=== PATIENT | female | born 1985 | race Caucasian/White ===

== ENCOUNTER 2017-03-04 18:23 | Inpatient (IN) | payer MEDICAID, OTHER ==
--- NOTE | 2017-03-04 18:57 | ED ---
General Adult HPI - General Chief complaint: Psychiatric Symptoms Stated complaint: SUICIDAL Time Seen by Provider: 03/04/17 18:36 Source: patient, RN notes reviewed Mode of arrival: ambulatory Limitations: no limitations - History of Present Illness Initial comments: Chief complaint history of present illness; is a 32-year-old female reports that she is depressed and suicidal. States she does denies drugs including heroin which she lasted this morning, cocaine and methamphetamine. Patient reports she's been through rehab programs over 30 times. She is afraid that she is going to kill herself because she is depressed. - Related Data Home Medications Medication Instructions Recorded Confirmed No Known Home Medications [No 03/04/17 03/04/17 Known Home Medications] Allergies Allergy/AdvReac Type Severity Reaction Status Date / Time vancomycin Allergy Rash/Hives/ Verified 03/04/17 19:30 Dyspnea Review of Systems ROS Statement: Those systems with pertinent positive or pertinent negative responses have been documented in the HPI. Review of systems patient reports she's here because she is depressed and suicidal. There is a past history of bipolar disorder and chronic depression. She also has substance abuse problems last used heroin this morning. She is denying any headache chest pain shortness breath GI/ complaints this time. Denies having any active abscesses. Systems reviewed problems significant for IV drug abuse, bipolar disorder, family history no cancers or addictions. Patient's surgeries include 4 C-sections all he shoulder living with the father. She has ALLERGIES to vancomycin causes her to be itchy and hives. She does smoke she denies alcohol use. ROS Other: All systems not noted in ROS Statement are negative. Past Medical History Past Medical History: No Reported History Additional Past Medical History / Comment(s): adjustment disorder History of Any Multi-Drug Resistant Organisms: MRSA Date of last positivie culture/infection: 02/02/16 MDRO Source:: face Past Surgical History: Section Past Anesthesia/Blood Transfusion Reactions: No Reported Reaction Past Psychological History: Anxiety, Bipolar, Depression Smoking Status: Current every day smoker Past Alcohol Use History: None Reported Past Drug Use History: Heroin, Methamphetamine General Exam - General Exam Comments Initial Comments: General: The patient is awake and alert, appears had, depressed, states she is suicidal because of being depressed over chronic drug abuse. sHe started using drugs and she was 26. Vital signs show temperature 98.4 pulse 108 respiratory 18 pulse ox 98% room air blood pressure 159/ 100 Eye: Pupils are equal, round and reactive to light, extra-ocular movements are intact ; there is normal conjunctiva bilaterally. No signs of icterus. Ears, nose, mouth and throat: There are moist mucous membranes and no oral lesions. Neck: The neck is supple, there is no tenderness or JVD. Cardiovascular: There is a regular rate and rhythm. No murmur, rub or gallop is appreciated. Respiratory: Lungs are clear to auscultation, respirations are non-labored, breath sounds are equal. No wheezes, stridor, rales, or rhonchi. Gastrointestinal: Soft, non-distended, non-tender abdomen without masses or organomegaly noted. There is no rebound or guarding present. No CVA tenderness. Bowel sounds are unremarkable. Back: There is no tenderness to palpation in the midline. There is no obvious deformity. No rashes noted. Musculoskeletal: Normal ROM, no tenderness, There is no pedal edema. There is no calf tenderness or swelling. Sensation intact. Pulses equal bilaterally 2+. Neurological: CN II-XII intact, There are no obvious motor or sensory deficits. Coordination appears grossly intact. Speech is normal. Skin: Multiple tattoos on her face arms legs Psychiatric: Flat affect, depressed, suicidal. Addicted to multiple drugs including heroin which she last used this morning. Limitations: no limitations Course Vital Signs 03/04/17 18:30 Temperature 98.4 F Pulse Rate 108 H Respiratory 18 Rate Blood Pressure 159/100 O2 Sat by Pulse 98 Oximetry Medical Decision Making - Medical Decision Making Medical decision making; the patient's breath alcohol test was 0. A urine triage was negative for evidence of aspirin or Tylenol. It was positive for opiates, benzodiazepines and cocaine. At this time the patient is clear for psychiatric evaluation. - Lab Data Lab Results 03/04/17 03/04/17 Range/Units 18:58 18:58 Salicylates <1.0 mg/dL Urine Opiates Screen Detected H (NotDetected) Ur Oxycodone Screen Not Detected (NotDetected) Urine Methadone Screen Not Detected (NotDetected) Ur Propoxyphene Screen Not Detected (NotDetected) Acetaminophen <10.0 ug/mL Ur Barbiturates Screen Not Detected (NotDetected) U Tricyclic Antidepress Not Detected (NotDetected) Ur Phencyclidine Scrn Not Detected (NotDetected) Ur Amphetamines Screen Not Detected (NotDetected) U Methamphetamines Scrn Not Detected (NotDetected) U Benzodiazepines Scrn Detected H (NotDetected) Urine Cocaine Screen Detected H (NotDetected) U Marijuana (THC) Screen Not Detected (NotDetected) Disposition Clinical Impression: Major depression, Polysubstance abuse Disposition: TRANSFER TO PSYCH HOSP/UNIT Condition: Serious Referrals: None,Stated [Primary Care Provider] - 1-2 days
[2017-03-04 19:12] LABS: Acetaminophen <10.0 ug/mL; Salicylate <1.0 mg/dL
[2017-03-04] MEDS ORDERED: LORazepam 1 MG TAB PO STA ×2 (21:00→22:56)
[2017-03-05] MEDS ORDERED: MAGNESIUM HYDROXIDE 2,400 MG/10 ML CUP PO PRN (00:09)
[2017-03-05] MEDS ORDERED: MAG HYDROX/AL HYDROX/SIMETH 30 ML CUP PO PRN (00:09)
[2017-03-05 02:03] VITALS: BMI 22.6
[2017-03-05] MEDS: NICOTINE 14MG/24HR PATCH TRANSDERM SCH (08:31)
[2017-03-05] MEDS: LORazepam 1 MG TAB PO PRN ×3 (08:32→21:23)
[2017-03-05] MEDS ORDERED: LOPERAMIDE 2 MG CAP PO PRN (09:03)
[2017-03-05] MEDS ORDERED: ONDANSETRON 4 MG TAB PO PRN (09:03)
--- NOTE | 2017-03-05 09:03 | P.HPMEDMHU ---
History of Present Illness H&P Date: 03/05/17 Chief Complaint: Detoxing This is a 32 year old female with past medical history significant for IV drug abuse and MRSA. The patient states that she last used IV heroin yesterday morning and is now having significant withdrawal symptoms. She presented to [facility] emergency room with suicidal thoughts which worsened after she was attempting to get herself cleaned from all of her drug addiction. She uses crack cocaine and heroin. She has been increasingly more anxious. She states that she is at a point in her life where she wishes to quit. She would like assistance with her drug addiction. She is currently experiencing some abdominal cramping otherwise she feels jittery, she denies any nausea or vomiting, she has not had any palpitations chest pain, no fevers no rigors. She has not noticed any new rashes. She denies any headaches changes in vision or acute visual loss. She feels like she is crawling out of her skin. She states she is unemployed. She lives at home with her boyfriend. Review of Systems Constitutional: Patient reports chills, low-grade temps, she feels anxious, tremulous Eyes: Patient reports no double vision, no visual changes ENT: Patient reports no rhinorrhea, no post nasal drip, no sore throat Cardiovascular: Patient reports no chest, no edema, no palpitations, no syncope , no orthopnea, no paroxysmal nocturnal dyspnea. Respiratory: Patient reports no dyspnea, no cough, no wheeze Gastrointestinal: Patient reports no nausea, no vomiting, no constipation, no diarrhea. Mild abdominal cramping Genitourinary: Patient reports no dysuria, no urinary frequency, no hematuria. Musculoskeletal: Patient reports no unusual joint pain, no joint swelling or weakness. Patient reports no muscular pain. Psychiatric: Patient reports severe anxiety, depression "can't take this anymore". Endocrine: Patient reports no thirst, no polyuria, no cold intolerance, no heat intolerance. Neurological: Patient reports no unusual paresthesias, no seizures, no paresis , no paralysis, no facila droop, no headache. Heme/Lymphatic: Patient reports no easy bruising, no bleeding tendency, no lymphadenopathy. Allergic/ Immunologic: Patient reports no recent allergic reactions or immunologic history. Skin: Patient reports no rashes or unusual lesions. Past Medical History Past Medical History: No Reported History Additional Past Medical History / Comment(s): adjustment disorder. Major Depression. Polysubstance abuse History of Any Multi-Drug Resistant Organisms: MRSA Date of last positivie culture/infection: 02/02/16 MDRO Source:: face Past Surgical History: Section Past Anesthesia/Blood Transfusion Reactions: No Reported Reaction Past Psychological History: Depression Smoking Status: Current every day smoker Past Drug Use History: Cocaine, Heroin, IV Drug Use Medications and Allergies Home Medications Medication Instructions Recorded Confirmed Type No Known Home Medications [No 03/04/17 03/05/17 History Known Home Medications] Allergies Allergy/AdvReac Type Severity Reaction Status Date / Time vancomycin Allergy Rash/Hives/ Verified 03/05/17 01:40 Dyspnea Physical Exam Vitals: Vital Signs Temp Pulse Pulse Resp BP BP Pulse Ox 03/05/17 07:04 97.7 F 76 12 122/79 03/05/17 01:50 98.7 F 76 16 112/75 03/04/17 21:16 83 18 128/76 100 03/04/17 18:30 98.4 F 108 H 18 159/100 98 Intake and Output 03/04/17 03/05/17 03/05/17 22:59 06:59 14:59 Other: Weight 61.235 kg 65.7 kg Constitutional: Anxious, but in no acute respiratory distress, does not appear ill, appears to be withdrawing Eyes: Anicteric sclerae, moist conjunctiva, no lid-lag PERR ENMT: NC/AT Oropharynx clear, no erythema, exudates Neck: Supple, FROM, no masses, or JVD No carotid bruits No thyromegaly Lungs: Clear to auscultation Normal respiratory effort, no accessory muscle use Cardiovascular: Heart regular in rate and rhythm, No murmurs, gallops, or rubs No peripheral edema Abdominal: Soft Nontender, no guarding, rebound or rigidity Abdomen moving with respiration Normoactive bowel sounds No hepatomegaly, No splenomegaly No palpable mass No abdominal wall hernia noted Skin: Normal temperature, tone, texture, turgor No induration. Multiple tattoos No rash, lesions Extremities: No digital cyanosis No clubbing Radial pulses intact and symmetrical Normal gait and station Psychiatric: Alert and oriented to person, place and time Appropriate affect Intact judgement Neuro: Muscles Strength 5/5 in all 4 extremities Sensation to light touch grossly present throughout Cranial nerves II-XII grossly intact No focal sensory deficits Cranial Nerve Examination - Cranial Nerves Cranial Nerve I- Olfactory: Intact Cranial Nerve II- Optic: Intact Cranial Nerve III- Oculomotor: Intact Cranial Nerve IV- Trochlear: Intact Cranial Nerve V- Trigeminal: Intact Cranial Nerve - Abducens: Intact Cranial Nerve VII- Facial: Intact Cranial Nerve VIII- Auditory: Intact Cranial Nerve IX- Glossopharyngeal: Intact Cranial Nerve X- Vagus: Intact Cranial Nerve XI- Accessory: Intact Cranial Nerve XII- Hypoglossal: Intact Results Labs: Abnormal Lab Results - Last 24 Hours (Table) 03/04/17 Range/Units 18:58 Urine Opiates Screen Detected H (NotDetected) U Benzodiazepines Scrn Detected H (NotDetected) Urine Cocaine Screen Detected H (NotDetected) Assessment and Plan (1) Major depression Status: Acute (2) Polysubstance abuse Status: Acute (3) Cocaine abuse Status: Acute (4) IV drug abuse Status: Acute Plan: 1. Psychiatric assistance with her mental health and polysubstance abuse. 2. Medically the patient appears to be stable with no acute medical illnesses 3. Continue with supportive care as per psychiatry 4. Frequent ambulation for DVT prophylaxis 5. Full CODE STATUS We appreciate the opportunity to assist in your patient's admission. If you have any further medical needs please do not hesitate to page [facility]
--- NOTE | 2017-03-05 09:16 | P.HP ---
Psychiatric H&P - . H&P Date: 03/05/17 History & Physical: Allergies Allergy/AdvReac Type Severity Reaction Status Date / Time vancomycin Allergy Rash/Hives/ Verified 03/05/17 01:40 Dyspnea Vital Signs Temp 97.7 F 03/05/17 07:04 Pulse 76 03/05/17 07:04 Resp 12 03/05/17 07:04 BP 122/79 03/05/17 07:04 Pulse Ox 100 03/04/17 21:16 Intake & Output 03/04/17 03/05/17 03/05/17 18:59 06:59 18:59 Weight 61.235 kg 65.7 kg Laboratory Last Values Salicylates <1.0 mg/dL 03/04/17 18:58 Urine Opiates Screen Detected (NotDetected) H 03/04/17 18:58 Ur Oxycodone Screen Not Detected (NotDetected) 03/04/17 18:58 Urine Methadone Screen Not Detected (NotDetected) 03/04/17 18:58 Ur Propoxyphene Screen Not Detected (NotDetected) 03/04/17 18:58 Acetaminophen <10.0 ug/mL 03/04/17 18:58 Ur Barbiturates Screen Not Detected (NotDetected) 03/04/17 18:58 U Tricyclic Antidepress Not Detected (NotDetected) 03/04/17 18:58 Ur Phencyclidine Scrn Not Detected (NotDetected) 03/04/17 18:58 Ur Amphetamines Screen Not Detected (NotDetected) 03/04/17 18:58 U Methamphetamines Scrn Not Detected (NotDetected) 03/04/17 18:58 U Benzodiazepines Scrn Detected (NotDetected) H 03/04/17 18:58 Urine Cocaine Screen Detected (NotDetected) H 03/04/17 18:58 U Marijuana (THC) Screen Not Detected (NotDetected) 03/04/17 18:58 03/05/17 09:06 IDENTIFYING DATA: This patient is a 32-year-old single female who was admitted to the mental health unit through the emergency room for suicidal ideation. HPI: The patient was admitted to the mental health unit through the emergency room as she presented with suicidal ideation. Our session was limited today due to her partial cooperation. She reports that she came to the hospital as she was "dope sick" and wanted to kill herself as she couldn't stand it any longer. She reports feeling depressed she is frequently tearful sleep energy and appetite are impaired. She reports she was previously diagnosed as having bipolar disorder with [facility] but denies ever being on medication. She states that she self medicates her symptoms of mental illness. She reports no homicidal ideation she endorses no auditory or visual hallucinations or specific delusions. She states that she feels anxious all the time she endorses having panic attacks. She does not provide much detail with follow-up questions and she wants to terminate the interview to go lay down. PAST PSYCHIATRIC HISTORY: She reports no prior inpatient psychiatric care she was seen at [facility] at some point. She reports a previous diagnosis of bipolar disorder. I reviewed several psychotropic medications with her including mood stabilizers and she states that she has been on none of those. No history of suicide attempts. PMH: None reported ALLERGIES: Vancomycin MEDICATIONS: None CHEMICAL DEPENDENCY HISTORY: She reports using heroin intravenously 5-6 g per day since May. Prior to May she was clean for 14 months. She reports relapsing because her friend was murdered. She reports using crack cocaine whenever it's available but would not quantify an amount. She reports no use of alcohol or marijuana or prescription opiates. She reports that she has been to inpatient chemical dependency treatment numerous times, greater than 5, the last was at [place] she is not able to recall when she was there last. FAMILY PSYCHIATRIC HISTORY: Unknown FAMILY CHEMICAL DEPENDENCY HISTORY: Unknown SOCIAL HISTORY: The patient is 32 years old she single she reports that she has a boyfriend and they've been together 1 year she characterizes the relationship as being "horrible". She states that she lives with her boyfriend. She is unemployed. she has 2 children a 12-year-old son and 9-year-old daughter however she does not have custody of them and they are with their father. She reports graduating high school and attended 2 years of community college with no degree earned. She has 2 brothers 4 sisters. She is originally from the [facility]. Regarding legal history she states that she has been arrested for possession, abuse history unknown as interview ended prematurely. MENTAL STATUS EXAM: The patient is a thin female appearing her stated age. She has a disheveled appearance hygiene and grooming impaired. She has numerous tattoos including on her face and neck and upper extremities. She reports her mood is "dope sick". She has a dysphoric affect she does not sit still in the chair she frequently moves stretching and laying her head down on the table. Eye contact is intermittent at best. She endorses a depressed mood she presented with suicidal ideation. She reports no homicidal ideation. She endorses no auditory or visual hallucinations she is endorsing no specific delusions. Her speech was not pressured. She does not appear manic at this time. Insight and judgment limited. She is oriented to person place and date. No further cognitive testing could be performed. She demonstrated no verbal or physical aggressiveness but indicated she was leaving the room to go lay down. STRENGTHS/WEAKNESSES: Strengths: Presumed housing, willingness to receive treatment weaknesses: Psychosocial dysfunction due to substance use untreated psychiatric symptoms INTELLECTUAL FUNCTIONING: Presumed to be average IMPRESSIONS: [] 1. Depression unspecified, rule out bipolar depression versus major depressive disorder, opioid use disorder, cocaine use disorder 2. Grief and loss PLAN: The patient has been admitted to the mental health unit voluntarily. Her primary focus at this time is receiving treatment for her opiate withdrawal symptoms. We will have to manage these symptomatically. She has Ativan available as needed for anxiety we will make Zofran available for nausea Imodium for diarrhea. We can prescribe Bentyl if she experiences abdominal cramping. Clonidine has been prescribed 0.1 mg up to 3 times a day as needed we will monitor her blood pressure. She will be seen by the hospitalist for routine history and physical exam. Social work will be with the patient to complete a psychosocial assessment and begin discharge planning. With subsequent days we will discuss her presenting mood symptoms further to clarify her psychiatric diagnosis and make medication recommendations as appropriate. We will monitor her for safety and encourage participation in the milieu.
[2017-03-05] MEDS: cloNIDine HCL 0.1 MG TAB PO PRN (17:22)
[2017-03-06] MEDS: cloNIDine HCL 0.1 MG TAB PO PRN ×3 (01:40→18:07)
[2017-03-06] MEDS: LORazepam 1 MG TAB PO PRN ×4 (05:39→23:59)
[2017-03-06] MEDS: NICOTINE 14MG/24HR PATCH TRANSDERM SCH (08:51)
--- NOTE | 2017-03-06 11:07 | P.PN ---
Progress Note - Text Interval history: The patient is found in the hallway she follows me to an interview room. She reports she is still experiencing symptoms from opiate withdrawal. She has been using medications that are available for symptomatic management. Again we tried to discuss her presenting symptoms. She does describe episodes of major depressive disorder. She indicates that she had been previously diagnosed with bipolar disorder but also states that it was always in the context of using heroin and/or cocaine. She reports feeling safe here in the hospital she does inquire as to when she can leave. She expresses interest in attending inpatient chemical dependency treatment but not in this area. She indicates she will go back to the [place] area. The patient is partially cooperative and terminates the session on her own but does so without agitation. Mental status exam: The patient is alert but appears tired. Hygiene and grooming are impaired. Eye contact is intermittent. She frequently moves while seated in her chair and will lay her head down on the table. She has numerous visible tattoos. She reports feeling safe here in the hospital she endorses no acute suicidal ideation currently no homicidal ideation intent or plan. She is reporting no auditory or visual hallucinations she is endorsing no specific delusions. There is no current evidence of psychosis. She does not appear manic at this time. She is oriented to person place and date. She is demonstrating no verbal or physical aggressiveness. Insight and judgment limited. Today it appears she is minimizing symptoms to facilitate a discharge. Plan: Depression on specified rule out major depressive disorder rule out bipolar depression, opiate use disorder cocaine use disorder, the patient engaged more in the interview today versus yesterday but was still insufficient for us to discuss a diagnosis and clearly come up with a medication recommendation. We will continue to monitor her for safety. Vital signs reviewed. We will continue to assess her progress daily in terms of safety.
[2017-03-06] MEDS: ACETAMINOPHEN TAB 325 MG TAB PO PRN ×3 (12:09→21:59)
[2017-03-06 14:34] LABS: Basophils % (A) 0 %; Eosinophils # (A) 0.2 k/uL (0-0.7); Eosinophils % (A) 2 %; HCT 42.9 % (34.0-46.0); HDW 2.74; HGB 14.5 gm/dL (11.4-16.0); Luc # (Auto) 0.11; Luc % (Auto) 1; Lymphocytes # (A) 1.5 k/uL (1.0-4.8); Lymphocytes % (A) 15 %; MCH 30.1 pg (25.0-35.0); MCHC 33.9 g/dL (31.0-37.0); MCV 88.7 fL (80.0-100.0); Monocytes # (A) 0.2 k/uL (0-1.0); Monocytes % (A) 2 %; Neutrophils # (A) 8.1 k/uL (1.3-7.7); Neutrophils % (A) 80 %; RBC 4.84 m/uL (3.80-5.40); WBC 10.1 k/uL (3.8-10.6); WBC (Perox) 10.63
[2017-03-06 15:49] LABS: Anion Gap 10 mmol/L; Blood Urea Nitrogen 12 mg/dL (7-17); Calcium 9.1 mg/dL (8.4-10.2); Carbon Dioxide 25 mmol/L (22-30); Chloride 104 mmol/L (98-107); Glucose 91 mg/dL (74-99); Non-African American GFR(MDRD) >60 (>60 ml/min/1.73 sqM); Sodium 139 mmol/L (137-145)
[2017-03-07] MEDS: cloNIDine HCL 0.1 MG TAB PO PRN ×3 (01:55→16:45)
[2017-03-07] MEDS: ACETAMINOPHEN TAB 325 MG TAB PO PRN ×3 (01:55→23:10)
[2017-03-07] MEDS: LORazepam 1 MG TAB PO PRN (08:00)
[2017-03-07] MEDS: NICOTINE 14MG/24HR PATCH TRANSDERM SCH (08:00)
--- NOTE | 2017-03-07 09:01 | P.PN ---
Progress Note - Text Interval history: The patient is found in the hallway. She approaches me asking to speak this morning. We met in an interview room. She states that she is having difficulty sleeping. She is feeling more alert staff report that she has been out on the unit socializing. She has showered she has been watching her clothes. She states that she does feel she has a bipolar disorder she describes episodes with increased energy and decreased sleep. Speech verbal and physically aggressive behavior. She states that her father and several other family members have bipolar disorder and are treated with medication. She is able to share today that she was previously prescribed Seroquel by [facility] and she felt that that helped with mood stability depression and anxiety as well as sleep. She states she was previously on 200 mg twice daily. She reports she is motivated to attend the residential program at [place] and will make the phone call today for placement. Vital signs reviewed. Lab values reviewed her TSH is low. Mental status exam: The patient is alert she is a thin female appearing her stated age she has short hair hygiene improved grooming is disheveled. Eye contact is appropriate. She reports her moods improving but she is concerned about mood instability symptoms without use of a mood stabilizer. Speech is nonpressured. She is fairly direct and blunt. She frequently uses profanity during conversation. She demonstrates no verbal or physical aggressiveness. She reports no acute suicidal or homicidal ideation. She is endorsing no auditory or visual hallucinations or specific delusions. There is no observed evidence of psychosis. She remains oriented to person place and date. She does appear somewhat stimulus bound and distractible. Plan: Presumed bipolar disorder most recent depressed, opiate use disorder, crack cocaine use disorder, the patient will be started on Seroquel 100 mg twice daily. She was able to participate more in the conversation allowing us to clarify a working diagnosis and proceed with medication management. She anticipates a visit from her mother this evening. We will monitor her for safety and encourage her participation milieu. If she is appropriately stable we will consider discharge in the next 1-2 days. She strongly encouraged to call access for placement at [facility]. We will get follow-up labs regarding the low TSH.
[2017-03-07] MEDS: QUEtiapine 100 MG TAB PO SCH ×2 (09:23→21:18)
[2017-03-07 13:53] LABS: Amorphous Sediment,Urine Rare /hpf; Appearance,Urine Cloudy (Clear); Bacteria,Urine Rare /hpf; Bilirubin,Urine Negative (Negative); Glucose,Urine (UA) Negative (Negative); Ketones,Urine Negative (Negative); Leukocyte Esterase,Urine Trace (Negative); Nitrite,Urine Negative (Negative); Particle Count 3285; Protein,Urine Negative (Negative); RBC,Urine <1 /hpf (0-5); Specific Gravity,Urine 1.006 (1.001-1.035); Squamous Epithelial Cell,Urine 9 /hpf (0-4); UA Billing (MACRO vs. MICRO) MICRO; Urobilinogen,Urine <2.0 mg/dL (<2.0); WBC,Urine 2 /hpf (0-5)
[2017-03-07] MEDS ORDERED: QUEtiapine 100 MG TAB PO STA (23:08)
[2017-03-08] MEDS: ACETAMINOPHEN TAB 325 MG TAB PO PRN (03:13)
[2017-03-08 06:36] VITALS: BP 111/75; PULSE 118; RESP 18; TEMP 97.6
[2017-03-08] MEDS: NICOTINE 14MG/24HR PATCH TRANSDERM SCH (08:39)
[2017-03-08] MEDS: QUEtiapine 100 MG TAB PO SCH (08:39)
[2017-03-08] MEDS: cloNIDine HCL 0.1 MG TAB PO PRN (08:39)
--- NOTE | 2017-03-08 09:04 | P.DS ---
Providers Date of admission: 03/04/17 23:01 Expected date of discharge: 03/08/17 Attending physician: Nathan Andersen Consults: 03/05/17 00:09 Consult Physician Routine Consulting Provider: Madie Phan Consult Reason/Comments: H and P eval and tx. r/o metabolic disorder Do you want consulting provider notified?: Yes Primary care physician: Stated None - Discharge Diagnosis(es) (1) Bipolar depression Current Visit: Yes Status: Acute Priority: High (2) Opioid use disorder, severe, dependence Current Visit: Yes Status: Acute Priority: High (3) Cocaine use disorder, moderate, dependence Current Visit: Yes Status: Acute Priority: Medium Hospital Course: Brief summary of admission note: This patient is a 32-year-old single female who was admitted to the mental health unit through the emergency room for suicidal ideation. She reported to the hospital stating she was "dope sick " and wanted to kill herself as she could not stand it any longer. She reported feeling depressed frequently tearful reporting poor sleep energy and appetite. She had reported a previous diagnosis of bipolar disorder in the context of ongoing heroin use and intermittent use of cocaine. For full detail please refer to my psychiatric evaluation dated 03/05/2017. Summary of hospital course: The patient was admitted to the mental health unit she did sign in voluntarily. We reviewed her presenting symptoms. For the first 2 days of admission she was impaired due to withdrawal from the opiates. Yesterday we were able to continue the conversation regarding her diagnosis and we were able to clarify she has had manic episodes in the past. We agreed to initiate Seroquel as a mood stabilizer. She had previously reported being on that medication with some success. The patient is agreeable to going to inpatient chemical dependency treatment however there is a wait list of approximate 2 weeks. She had been verbalizing that she was going to go back to [place] where she resides but today states she will be staying in [place] at a friend's house. She states that she is trying to get away from people she knows which will help her stay sober. She verbalizes that she needs to keep "applying myself" meaning she wants to go to and get a sponsor. She demonstrated no aggressive behavior on the mental health unit. She has demonstrated progressive improvement of symptoms while here. She feels her opiate withdrawal symptoms have abated. She has no questions or concerns regarding Seroquel today. We discussed titrating the dose to 300 mg and she is agreeable. Mental status exam: The patient is alert she's cooperative she seated calmly in the chair. Eye contact is appropriate speech is fluent and spontaneous nonpressured. She reports her mood is better. She reports no suicidal ideation intent or plan no homicidal ideation intent or plan. She reports no auditory or visual hallucinations or any specific delusions. She demonstrates no evidence of psychosis. She does not appear to be manic at this time. Insight and judgment have improved during the course of the hospitalization. She demonstrates no verbal or physical aggressiveness. She is oriented to person place and date. Affect demonstrates an appropriate range. Impressions 1. Bipolar 1 disorder depressed, opioid use disorder, cocaine use disorder, rule out PTSD 2. Grief and loss 3. Psychosocial dysfunction due to substance use Plan: The patient will be discharged mental health unit today. We will titrate the Seroquel to 100 mg daily and 200 mg at bedtime. She is informed that she can take the entire 300 mg at bedtime if that is more convenient. She plans on staying at a friend's house in [place]. Social work will arrange outpatient mental health follow-up. The patient states that she has called [facility] for a placement date. We discussed the importance of abstaining from alcohol marijuana or any illicit drug. We discussed that if she engages in use of those substances again her safety risk is elevated. She is instructed to go to the nearest emergency room with any acute safety concerns. At this time there is no imminent safety risk she is appropriate for transition outpatient care. Patient Condition at Discharge: Stable Plan - Discharge Summary New Discharge Prescriptions: New Nicotine 14Mg/24Hr Patch [Habitrol] 1 patch TRANSDERM DAILY #6 patch QUEtiapine [SEROquel] 100 mg PO DAILY #45 tablet Discharge Medication List Nicotine 14Mg/24Hr Patch [Habitrol] 1 patch TRANSDERM DAILY #6 patch 03/08/17 [ Rx] QUEtiapine [SEROquel] 100 mg PO DAILY #45 tablet 03/08/17 [Rx] Follow up Appointment(s)/Referral(s): [facility] [Outside] - 03/23/17 1:15 pm None,Stated [Primary Care Provider] - 1-2 days
== END 2017-03-08 10:03 | disposition home or self-care (01) | DRG 753 ==
LOC: EC 18:23 → 3MHU 23:01
PROVIDERS: ADMIT Psychiatry & Neurology Psychiatry; ATTEND Psychiatry & Neurology Psychiatry
DX: F31.9 Bipolar disorder, unspecified (principal); F14.20 Cocaine dependence, uncomplicated; R45.851 Suicidal ideations; F11.23 Opioid dependence with withdrawal; F17.200 Nicotine dependence, unspecified, uncomplicated; F41.0 Panic disorder [episodic paroxysmal anxiety]; G47.9 Sleep disorder, unspecified; F43.10 Post-traumatic stress disorder, unspecified; Z88.1 Allergy status to other antibiotic agents; Z86.14 Personal history of Methicillin resistant Staphylococcus aureus infection; Z81.8 Family history of other mental and behavioral disorders
CPT/HCPCS: 36415; 80048; 80306; 81001; 81025; 82075; 83520; 84439; 84443; 85025; 99285

== ENCOUNTER 2017-03-10 15:39 | Emergency (ER) | payer OTHER ==
[2017-03-10 15:52] VITALS: BP 141/89; PULSE 115; RESP 20; TEMP 100.6
[2017-03-10] MEDS ORDERED: SULFAMETH-TMP DS STARTER PACK 2 TAB BTL PO STA (16:23)
--- NOTE | 2017-03-10 16:26 | ED ---
Skin/Abscess/FB HPI - General Chief complaint: Skin/Abscess/Foreign Body Stated complaint: cyst on breast Time Seen by Provider: 03/10/17 16:23 Source: patient, RN notes reviewed, old records reviewed Mode of arrival: ambulatory Limitations: no limitations - History of Present Illness Initial comments: This is a 32-year-old female chief complaint of right breast abscess and redness for the past few days. Patient reports she has a history of IV heroin abuse. Patient states that she last used a few days ago. She states that she is now clean. Patient reports she sought feverish and chilled. Patients that he's had be admitted before and had previous abscesses drained due to IV heroin use. She's been a user for many years. She reports that she was recently discharged from the psychiatric unit and recently started on new psych meds. Patient denies any recent shortness of breath, chest pain, back pain, abdominal pain, nausea vomiting, numbness or tingling, dysuria or hematuria, constipation or diarrhea, headaches or visual changes, or any other current symptoms - Related Data Home Medications Medication Instructions Recorded Confirmed QUEtiapine [SEROquel] 200 mg PO HS 03/10/17 03/10/17 Previous Rx's Medication Instructions Recorded QUEtiapine [SEROquel] 100 mg PO DAILY #45 tablet 03/08/17 Sulfamethox-Tmp 800-160Mg [Bactrim 2 tab PO Q12HR #40 tab 03/10/17 DS 800-160 mg] Allergies Allergy/AdvReac Type Severity Reaction Status Date / Time vancomycin Allergy Rash/Hives/ Verified 03/10/17 16:17 Dyspnea Review of Systems ROS Statement: Those systems with pertinent positive or pertinent negative responses have been documented in the HPI. ROS Other: All systems not noted in ROS Statement are negative. Past Medical History Past Medical History: No Reported History Additional Past Medical History / Comment(s): adjustment disorder. Major Depression. Polysubstance abuse History of Any Multi-Drug Resistant Organisms: MRSA Date of last positivie culture/infection: 02/02/16 MDRO Source:: face Past Surgical History: Section Past Anesthesia/Blood Transfusion Reactions: No Reported Reaction Past Psychological History: Depression Smoking Status: Current every day smoker Past Alcohol Use History: None Reported Past Drug Use History: Cocaine, Heroin, IV Drug Use General Exam - General Exam Comments Initial Comments: This is a 32-year-old female. Patient appears anxious. Limitations: no limitations Head exam: Present: atraumatic Eye exam: Present: normal appearance, PERRL, EOMI. Absent: scleral icterus, conjunctival injection, periorbital swelling ENT exam: Present: normal exam, mucous membranes moist Neck exam: Present: normal inspection. Absent: tenderness, meningismus, lymphadenopathy Respiratory exam: Present: normal lung sounds bilaterally, other (Patient has significant right breast abscess. The area of induration with surrounding abscess is approximately 3 toFor some years. There is also surrounding cellulitis measuring 10 cm by a 12 cm.). Absent: respiratory distress, wheezes , rales, rhonchi, stridor Cardiovascular Exam: Present: regular rate, normal rhythm, normal heart sounds. Absent: systolic murmur, diastolic murmur, rubs, gallop, clicks GI/Abdominal exam: Present: soft, normal bowel sounds. Absent: distended, tenderness, guarding, rebound, rigid Extremities exam: Present: normal inspection, full ROM, normal capillary refill. Absent: tenderness, pedal edema, joint swelling, calf tenderness Back exam: Present: normal inspection Neurological exam: Present: alert, oriented X3, CN II-XII intact Psychiatric exam: Present: normal affect Skin exam: Present: warm, dry, intact, normal color. Absent: rash Course Vital Signs 03/10/17 03/10/17 15:49 16:36 Temperature 100.6 F H 100.6 F H Pulse Rate 115 H 115 H Respiratory 20 20 Rate Blood Pressure 141/89 141/89 O2 Sat by Pulse 100 100 Oximetry Medical Decision Making - Medical Decision Making 32-year-old emergency department with right breast abscess due to IV heroin use. Last use was a few days ago. Patient does arrive with a fever of 100.5. Patient does have a significant abscess with surrounding cellulitis. I discussed the patient needs to be admitted or at least have incision and drainage and check blood work patient became irate and upset. Patient was refusing to have an IV or draining of the abscess. She was afraid of the needles. She reports that if we would use a needle to poke her she was feeling she had a start using heroin again. At this time I discussed that we will put the patient and Bactrim to cover for the abscess and cellulitis, however he likely does need to be drained. Patient will sign out AMA. I did discuss with her to follow-up or return if the area of redness worsens. I did draw a line demarcating the area of cellulitis. Disposition Clinical Impression: Abscess of right breast, IV drug abuse Disposition: Left Against Medical Advice Condition: Stable Instructions: Abscess (ED) Additional Instructions: Patient instructed take the antibiotic prescription. Follow-up with her primary care provider. If the area of redness continues to spread or worsen despite being on antibiotics return to the emergency department at once. Prescriptions: Sulfamethox-Tmp 800-160Mg [Bactrim DS 800-160 mg] 2 tab PO Q12HR #40 tab Referrals: None,Stated [Primary Care Provider] - 1-2 days Time of Disposition: 16:25
== END 2017-03-10 16:39 | disposition left against medical advice (07) ==
LOC: EC 15:39
DX: N61.1 Abscess of the breast and nipple (principal); F11.10 Opioid abuse, uncomplicated; F32.9 Major depressive disorder, single episode, unspecified; F43.20 Adjustment disorder, unspecified; F17.200 Nicotine dependence, unspecified, uncomplicated; Z86.14 Personal history of Methicillin resistant Staphylococcus aureus infection; Z79.899 Other long term (current) drug therapy; Z88.1 Allergy status to other antibiotic agents; Z53.29 Procedure and treatment not carried out because of patient's decision for other reasons
CPT/HCPCS: 99283

== ENCOUNTER 2017-12-20 21:25 | Emergency (ER) | payer OTHER ==
[2017-12-20 21:46] VITALS: BP 145/95; PULSE 101; RESP 18; TEMP 98.6
--- NOTE | 2017-12-20 22:43 | ED ---
Skin/Abscess/FB HPI - General Chief complaint: Skin/Abscess/Foreign Body Stated complaint: Face /Rash Time Seen by Provider: 12/20/17 22:25 Source: patient, RN notes reviewed Mode of arrival: ambulatory Limitations: no limitations - History of Present Illness Initial comments: This a 32-year-old female presents emergency Department with chief complaint of abscess. Patient has had ongoing issues with infections secondary to IV drug use. Patient states that she had extensive right lower extremity which [place] [facility] states still open. Patient states she recently got out of [facility] 3 months ago. Patient states that she has bumps that started on her face and legs. Patient states that she's had no fever no chills. Patient states she still uses crack cocaine. Patient denies any neck pain or neck stiffness. - Related Data Home Medications Medication Instructions Recorded Confirmed QUEtiapine [SEROquel] 200 mg PO HS 03/10/17 03/10/17 Previous Rx's Medication Instructions Recorded QUEtiapine [SEROquel] 100 mg PO DAILY #45 tablet 03/08/17 Sulfamethox-Tmp 800-160Mg [Bactrim 2 tab PO Q12HR #40 tab 03/10/17 DS 800-160 mg] Sulfamethox-Tmp 800-160Mg [Bactrim 2 each PO Q12HR #56 tab 12/20/17 Ds] Allergies Allergy/AdvReac Type Severity Reaction Status Date / Time vancomycin Allergy Rash/Hives/ Verified 12/20/17 21:45 Dyspnea Review of Systems ROS Statement: Those systems with pertinent positive or pertinent negative responses have been documented in the HPI. ROS Other: All systems not noted in ROS Statement are negative. Past Medical History Past Medical History: No Reported History Additional Past Medical History / Comment(s): adjustment disorder. Major Depression. Polysubstance abuse History of Any Multi-Drug Resistant Organisms: MRSA Date of last positivie culture/infection: 02/02/16 MDRO Source:: face Past Surgical History: Section Past Anesthesia/Blood Transfusion Reactions: No Reported Reaction Past Psychological History: Depression Smoking Status: Current every day smoker Past Alcohol Use History: None Reported Past Drug Use History: Cocaine, Heroin, IV Drug Use, Methamphetamine General Exam Limitations: no limitations General appearance: alert, in no apparent distress Head exam: Present: atraumatic, normocephalic, normal inspection Eye exam: Present: normal appearance, PERRL, EOMI. Absent: scleral icterus, conjunctival injection, periorbital swelling ENT exam: Present: normal oropharynx, TM's normal bilaterally, normal external ear exam, other (Multiple abscesses noted on the face which are small less than 0.5 cm) Neck exam: Present: normal inspection. Absent: tenderness, meningismus, lymphadenopathy Respiratory exam: Present: normal lung sounds bilaterally. Absent: respiratory distress, wheezes, rales, rhonchi, stridor Cardiovascular Exam: Present: regular rate, normal rhythm, normal heart sounds. Absent: systolic murmur, diastolic murmur, rubs, gallop, clicks GI/Abdominal exam: Present: soft, normal bowel sounds. Absent: distended, tenderness, guarding, rebound, rigid Extremities exam: Present: other (Right ankle region there is a wound approximately 3 cm x 7 cm open with multiple surrounding scarring noted) Skin exam: Present: warm, dry Course Vital Signs 12/20/17 21:43 Temperature 98.6 F Pulse Rate 101 H Respiratory 18 Rate Blood Pressure 145/95 O2 Sat by Pulse 99 Oximetry Medical Decision Making - Medical Decision Making 32-year-old female presented for rash. Patient has an open wound to her right lower extremity secondary to debridement in the past. Patient has chronic wound which she will need to follow up with the wound center. Patient also has multiple new one abscesses will be placed on double dose Bactrim for 14 days. Patient's advised to discontinue drug use. Disposition Clinical Impression: Abscess of multiple sites, Chronic wound of extremity Disposition: HOME SELF-CARE Condition: Stable Instructions: Abscess (ED) Additional Instructions: Please return to the Emergency Department if symptoms worsen or any other concerns. Prescriptions: Sulfamethox-Tmp 800-160Mg [Bactrim Ds] 2 each PO Q12HR #56 tab Is patient prescribed a controlled substance at d/c from ED?: No Referrals: Roosevelt Bird MD [STAFF PHYSICIAN] - 1-2 days [facility] [NON-STAFF] - 1-2 days Time of Disposition: 22:43
[2017-12-20] MEDS ORDERED: KETOROLAC 60 MG/2 ML VIAL IM STA (22:47)
== END 2017-12-20 22:54 | disposition home or self-care (01) ==
LOC: EC 21:25
DX: L02.01 Cutaneous abscess of face (principal); L02.416 Cutaneous abscess of left lower limb; L02.415 Cutaneous abscess of right lower limb; S91.001D Unspecified open wound, right ankle, subsequent encounter; F32.9 Major depressive disorder, single episode, unspecified; F17.200 Nicotine dependence, unspecified, uncomplicated; Z79.899 Other long term (current) drug therapy; Z88.1 Allergy status to other antibiotic agents; Z86.14 Personal history of Methicillin resistant Staphylococcus aureus infection; X58.XXXD Exposure to other specified factors, subsequent encounter
CPT/HCPCS: 96372; 99283

== ENCOUNTER 2020-02-17 08:28 | Emergency (ER) | payer OTHER ==
[2020-02-17 08:38] VITALS: BP 122/80; PULSE 84; RESP 18; TEMP 98.3
[2020-02-17] MEDS ORDERED: CLINDAMYCIN 150 MG CAP PO STA (08:46)
--- NOTE | 2020-02-17 08:57 | ED ---
General Adult HPI - General Chief complaint: Allergic Reaction Stated complaint: facial swelling Time Seen by Provider: 02/17/20 08:39 Source: patient, RN notes reviewed Mode of arrival: ambulatory Limitations: no limitations - History of Present Illness Initial comments: 35-year-old female with a past medical history of MRSA, depression, polysubstance abuse currently clean presents to the emergency room for a chief complaint of right-sided facial swelling. Patient reports she has had dental pain since yesterday and suddenly when she woke up this when he started to have swelling. She states it hurts to swallow somewhat. She denies trismus. Denies fevers or chills. Denies sublingual edema. Patient reports she has not yet tried to call her dentist but will do so today when she leaves. She denies fevers or chills. Denies neck stiffness.Patient has no other complaints at this time including shortness of breath, chest pain, abdominal pain, nausea or vomiting, headache, or visual changes. - Related Data Previous Rx's Medication Instructions Recorded Clindamycin [Cleocin] 450 mg PO Q8H 7 Days #63 cap 02/17/20 Allergies Allergy/AdvReac Type Severity Reaction Status Date / Time vancomycin Allergy Rash/Hives/ Verified 02/17/20 08:38 Dyspnea Review of Systems ROS Statement: Those systems with pertinent positive or pertinent negative responses have been documented in the HPI. ROS Other: All systems not noted in ROS Statement are negative. Past Medical History Past Medical History: No Reported History Additional Past Medical History / Comment(s): adjustment disorder. Major Depression. Polysubstance abuse History of Any Multi-Drug Resistant Organisms: MRSA Date of last positivie culture/infection: 02/02/16 MDRO Source:: face Past Surgical History: Section Past Anesthesia/Blood Transfusion Reactions: No Reported Reaction Past Psychological History: Depression Smoking Status: Current every day smoker Past Alcohol Use History: None Reported Past Drug Use History: Cocaine, Heroin, IV Drug Use, Methamphetamine General Exam Limitations: no limitations General appearance: alert, in no apparent distress Head exam: Present: atraumatic, normocephalic, normal inspection Eye exam: Present: normal appearance, PERRL, EOMI. Absent: scleral icterus, conjunctival injection, periorbital swelling ENT exam: Present: normal exam, mucous membranes moist, TM's normal bilaterally, normal external ear exam, other (Oropharynx is patent, no edema noted of the bilateral tonsillar pillars.). Absent: normal oropharynx (Patient does have right sided facial swelling noted along the cheek bone. No periorbital edema. Patient has tenderness to tooth 1. She does not have any evidence of abscess. Does not have any sublingual edema.) Neck exam: Present: normal inspection. Absent: tenderness, meningismus, lymphadenopathy Respiratory exam: Present: normal lung sounds bilaterally. Absent: respiratory distress, wheezes, rales, rhonchi, stridor Cardiovascular Exam: Present: regular rate, normal rhythm, normal heart sounds. Absent: systolic murmur, diastolic murmur, rubs, gallop, clicks Course Vital Signs 02/17/20 08:32 Temperature 98.3 F Pulse Rate 84 Respiratory 18 Rate Blood Pressure 122/80 O2 Sat by Pulse 100 Oximetry Medical Decision Making - Medical Decision Making Patient has pain to tooth 1 as well as swelling to the face. No obvious abscess. No trismus or sublingual edema. No drooling or respiratory distress. Patient likely experiencing dental infection. Will be treated with clindamycin. Denies chance of . However I did discuss the patient that she needs to return if this is worsening significantly. She is agreeable to this. She will follow up with a dentist. If she cannot get an eye did give her the numbers to [facility] and [facility]. I discussed Motrin and Tylenol alternating every 3 hours for pain. Disposition Clinical Impression: Pain, dental, Facial swelling Disposition: HOME SELF-CARE Condition: Good Instructions (If sedation given, give patient instructions): Toothache (ED) Additional Instructions: Please take antibiotic as directed. Please follow-up with your doctor in 1-2 days. Please return to the emergency room for any worsening symptoms. These could include worsening swelling or fevers. As discussed it may take 24 hours for the antibiotics to kick in however should not worsen significantly over that time. [facility] [facility] [id number] (existing clients only) New clients: [phone] 1st consult: $50 (includes XRs) Usually 30% less than private dentist for visits after. [employer] Have to pay $50 for Xrays and rest is covered [phone] Prescriptions: Clindamycin [Cleocin] 450 mg PO Q8H 7 Days #63 cap Is patient prescribed a controlled substance at d/c from ED?: No Referrals: Darren Chamorro MD [REFERRING] - 1-2 days Time of Disposition: 08:46
== END 2020-02-17 09:11 | disposition home or self-care (01) ==
LOC: EC 08:28
DX: K08.89 Other specified disorders of teeth and supporting structures (principal); R22.0 Localized swelling, mass and lump, head; F17.200 Nicotine dependence, unspecified, uncomplicated; Z88.1 Allergy status to other antibiotic agents; Z86.14 Personal history of Methicillin resistant Staphylococcus aureus infection
CPT/HCPCS: 99283

== ENCOUNTER 2020-03-25 14:16 | Emergency (ER) | payer OTHER ==
[2020-03-25 14:37] VITALS: BP 151/86; RESP 18; TEMP 98.8
[2020-03-25] MEDS ORDERED: cefTRIAXone 1,000 MG VIAL (IM USE) IM STA (15:01)
--- NOTE | 2020-03-25 15:04 | ED ---
Skin/Abscess/FB HPI - General Chief complaint: Skin/Abscess/Foreign Body Stated complaint: poss bite/rash Time Seen by Provider: 03/25/20 14:45 Source: patient, RN notes reviewed, old records reviewed Mode of arrival: ambulatory Limitations: no limitations - History of Present Illness Initial comments: Pt is a 35 year old female with 3 days of erythema and pustule lesion over R chest wall and breast. She reports to sleeping on the floor and may have been bit by a spider. She is currently under a tether and states she has to leave the ER in 30 minutes. Pt denies any other complaints including fevers or chills. She reports that she oppened the pustule and some purulent fluid already drained yesterday. - Related Data Previous Rx's Medication Instructions Recorded Clindamycin [Cleocin] 450 mg PO Q8H 7 Days #63 cap 02/17/20 Cephalexin [Keflex] 500 mg PO Q6HR 10 Days #40 cap 03/25/20 Sulfamethox-Tmp 800-160Mg [Bactrim 2 tab PO Q12HR #40 tab 03/25/20 DS 800-160 mg] Allergies Allergy/AdvReac Type Severity Reaction Status Date / Time vancomycin Allergy Rash/Hives/ Verified 03/25/20 14:35 Dyspnea Review of Systems ROS Statement: Those systems with pertinent positive or pertinent negative responses have been documented in the HPI. ROS Other: All systems not noted in ROS Statement are negative. Past Medical History Past Medical History: No Reported History Additional Past Medical History / Comment(s): adjustment disorder. Major Depression. Polysubstance abuse History of Any Multi-Drug Resistant Organisms: MRSA Date of last positivie culture/infection: 02/02/16 MDRO Source:: face Past Surgical History: Section Past Anesthesia/Blood Transfusion Reactions: No Reported Reaction Past Psychological History: Depression Smoking Status: Current every day smoker Past Alcohol Use History: None Reported Past Drug Use History: Cocaine, Heroin, IV Drug Use, Methamphetamine General Exam - General Exam Comments Initial Comments: 35 year old female, no distress. Limitations: no limitations General appearance: alert, in no apparent distress Head exam: Present: atraumatic, normocephalic, normal inspection Eye exam: Present: normal appearance, PERRL, EOMI. Absent: scleral icterus, conjunctival injection, periorbital swelling ENT exam: Present: normal exam Neck exam: Present: normal inspection. Absent: tenderness, meningismus, lymphadenopathy Respiratory exam: Present: normal lung sounds bilaterally, other (erythema over R breast extending to clavicle. Area has central pustule. Erythme and induration consistent with cellulitis. ). Absent: respiratory distress, wheezes, rales, rhonchi, stridor Cardiovascular Exam: Present: regular rate, normal rhythm, normal heart sounds. Absent: systolic murmur, diastolic murmur, rubs, gallop, clicks GI/Abdominal exam: Present: soft, normal bowel sounds. Absent: distended, tenderness, guarding, rebound, rigid Neurological exam: Present: alert, oriented X3, CN II-XII intact Psychiatric exam: Present: normal affect, normal mood Skin exam: Present: warm, dry, intact, normal color. Absent: rash Course Vital Signs 03/25/20 03/25/20 14:33 15:18 Temperature 98.8 F Pulse Rate 118 H 105 H Respiratory 18 Rate Blood Pressure 151/86 O2 Sat by Pulse 98 99 Oximetry Medical Decision Making - Medical Decision Making 35 year old female with R breast and Chest wall cellulitis from possible insect bite for 3 days. Pt area of erythema was demarcated and advised to return if swelling or erythema worsens from this site. Pt given IM rocephin and started on bactrim and keflex. Discussed return parameters. Disposition Clinical Impression: Abscess of chest wall Disposition: HOME SELF-CARE Condition: Good Instructions (If sedation given, give patient instructions): Abscess (ED), Chest Wall Pain (ED) Additional Instructions: Pt is to take ABX as prescribed. Motrin and tylenol for pain. If pain worsens to follow up with PCP or return to ED if area of redness worsens. Prescriptions: Sulfamethox-Tmp 800-160Mg [Bactrim DS 800-160 mg] 2 tab PO Q12HR #40 tab Cephalexin [Keflex] 500 mg PO Q6HR 10 Days #40 cap Is patient prescribed a controlled substance at d/c from ED?: No Referrals: None,Stated [Primary Care Provider] - 1-2 days Kvng Mendez [STAFF PHYSICIAN] - 1-2 days Time of Disposition: 15:00
[2020-03-25 15:19] VITALS: PULSE 105
== END 2020-03-25 15:16 | disposition home or self-care (01) ==
LOC: EC 14:16
DX: L02.213 Cutaneous abscess of chest wall (principal); F17.200 Nicotine dependence, unspecified, uncomplicated; Z88.1 Allergy status to other antibiotic agents
CPT/HCPCS: 87070; 87205; 99284; 96372; J0696

== ENCOUNTER 2020-07-06 11:59 | Emergency (ER) | payer OTHER ==
[2020-07-06 12:22] VITALS: RESP 18; TEMP 98.5
--- NOTE | 2020-07-06 12:57 | ED ---
General Adult HPI - General Chief complaint: Psychiatric Symptoms Stated complaint: EPS eval Time Seen by Provider: 07/06/20 12:20 Source: patient, family, RN notes reviewed, old records reviewed Mode of arrival: ambulatory Limitations: no limitations - History of Present Illness Initial comments: This is a 35-year-old female who presents to the emergency department with past medical history significant for suicidal ideations and heroin abuse. Patient states that she's been having suicidal ideations for the last 2 weeks. Patient states she relapsed and started abusing heroin about 2 months ago. Patient has had some vomiting almost on a daily basis for the last 2 weeks. Patient states she doesn't know if she is . Patient states she's not been any other drugs or alcohol. Patient denies any recent fever chills or cough. Patient den ies abdominal pain patient denies any diarrhea. Patient does states she has some itching on her arms bilaterally. Patient states she was treated for scabies for the itching but it did not help at all. Patient denies any other complaints at this time. patient states her plan for suicide is to overdose. - Related Data Previous Rx's Medication Instructions Recorded Cephalexin [Keflex] 500 mg PO Q6HR #28 cap 07/06/20 Allergies Allergy/AdvReac Type Severity Reaction Status Date / Time vancomycin Allergy Rash/Hives/ Verified 07/06/20 13:08 Dyspnea Review of Systems ROS Statement: Those systems with pertinent positive or pertinent negative responses have been documented in the HPI. ROS Other: All systems not noted in ROS Statement are negative. Past Medical History Past Medical History: No Reported History Additional Past Medical History / Comment(s): adjustment disorder. Major Depression. Polysubstance abuse History of Any Multi-Drug Resistant Organisms: MRSA Date of last positivie culture/infection: 03/25/20 MDRO Source:: Chest Past Surgical History: Section Past Anesthesia/Blood Transfusion Reactions: No Reported Reaction Past Psychological History: Depression Smoking Status: Current every day smoker Past Alcohol Use History: None Reported Past Drug Use History: Cocaine, Heroin, IV Drug Use, Methamphetamine General Exam - General Exam Comments Initial Comments: GENERAL: Patient is well-developed and well-nourished. Patient is nontoxic and well-h ydrated and is in no acute distress. ENT: Neck is soft and supple. No significant lymphadenopathy is noted. Oropharynx is clear. Moist mucous membranes. Neck has full range of motion without elic iting any pain. EYES: The sclera were anicteric and conjunctiva were pink and moist. Extraocular movements were intact and pupils were equal round and reactive to light. Eyelids were unremarkable. PULMONARY: Unlabored respirations. Good breath sounds bilaterally. No audible rales rhonchi or wheezing was noted. CARDIOVASCULAR: There is a regular rate and rhythm without any murmurs gallops or rubs. ABDOMEN: Soft and nontender with normal bowel sounds. SKIN: Patient has small areas that are scabbed over on her left forearm and upper arm it looks like she has been scratching these areas. Each area is very small with almost a picture of a folliculitis. NEUROLOGIC: Patient is alert and oriented x3. Cranial nerves II through XII are grossly intact. Motor and sensory are also intact. Normal speech, volume and content. Symmetrical smile. MUSCULOSKELETAL: Normal extremities with adequate strength and full range of motion. LYMPHATICS: No significant lymphadenopathy is noted PSYCHIATRIC: Patient states she is depressed and has suicidal ideations. Limitations: no limitations Course Vital Signs 07/06/20 07/06/20 12:18 16:02 Temperature 98.5 F Pulse Rate 80 69 Respiratory 18 18 Rate Blood Pressure 131/82 131/65 O2 Sat by Pulse 98 100 Oximetry Medical Decision Making - Medical Decision Making EPS evaluated the patient and determined the patient could go home with a safety plan patient was in agreement and patient stated she was clinical [facility] immediately to start rehabilitation. Patient was given Keflex for the rash on her arms which was somewhat consistent with folliculitis. - Lab Data Result diagrams: 07/06/20 13:08 07/06/20 13:08 Lab Results 07/06/20 07/06/20 Range/Units 13:08 13:08 WBC 5.7 (3.8-10.6) k/uL RBC 3.98 (3.80-5.40) m/uL Hgb 12.2 (11.4-16.0) gm/dL Hct 34.6 (34.0-46.0) % MCV 87.0 (80.0-100.0) fL MCH 30.7 (25.0-35.0) pg MCHC 35.3 (31.0-37.0) g/dL RDW 14.2 (11.5-15.5) % Plt Count 248 (150-450) k/uL MPV 6.9 Neutrophils % 57 % Lymphocytes % 27 % Monocytes % 6 % Eosinophils % 7 % Basophils % 1 % Neutrophils # 3.3 (1.3-7.7) k/uL Lymphocytes # 1.6 (1.0-4.8) k/uL Monocytes # 0.3 (0-1.0) k/uL Eosinophils # 0.4 (0-0.7) k/uL Basophils # 0.1 (0-0.2) k/uL Poikilocytosis Slight Sodium 138 (137-145) mmol/L Potassium 4.1 (3.5-5.1) mmol/L Chloride 101 (98-107) mmol/L Carbon Dioxide 30 (22-30) mmol/L Anion Gap 7 mmol/L BUN 6 L (7-17) mg/dL Creatinine 0.52 (0.52-1.04) mg/dL Est GFR (CKD-EPI)AfAm >90 (>60 ml/min/1.73 sqM) Est GFR (CKD-EPI)NonAf >90 (>60 ml/min/1.73 sqM) Glucose 93 (74-99) mg/dL Calcium 8.9 (8.4-10.2) mg/dL Total Bilirubin 0.5 (0.2-1.3) mg/dL AST 24 (14-36) U/L ALT 13 (4-34) U/L Alkaline Phosphatase 96 (38-126) U/L Total Protein 6.9 (6.3-8.2) g/dL Albumin 3.7 (3.5-5.0) g/dL Disposition Clinical Impression: Situational depression, Opiate abuse, continuous, Folliculitis Disposition: HOME SELF-CARE Condition: Good Instructions (If sedation given, give patient instructions): Opioid Use Disorder (ED), Folliculitis (ED), Depression (ED) Additional Instructions: Patient should go to [facility] for rehabilitation. Prescriptions: Cephalexin [Keflex] 500 mg PO Q6HR #28 cap Is patient prescribed a controlled substance at d/c from ED?: No Referrals: None,Stated [Primary Care Provider] - 1-2 days Time of Disposition: 16:18
[2020-07-06 13:16] LABS: Basophils # (A) 0.1 k/uL (0-0.2); Basophils % (A) 1 %; Eosinophils # (A) 0.4 k/uL (0-0.7); Eosinophils % (A) 7 %; HCT 34.6 % (34.0-46.0); HGB 12.2 gm/dL (11.4-16.0); Lymphocytes # (A) 1.6 k/uL (1.0-4.8); Lymphocytes % (A) 27 %; MCH 30.7 pg (25.0-35.0); MCHC 35.3 g/dL (31.0-37.0); Mean Platelet Volume 6.9; Monocytes # (A) 0.3 k/uL (0-1.0); Monocytes % (A) 6 %; Neutrophils # (A) 3.3 k/uL (1.3-7.7); Neutrophils % (A) 57 %; Platelet Count 248 k/uL (150-450); Poikilocytosis Slight; RBC 3.98 m/uL (3.80-5.40); RDW 14.2 % (11.5-15.5); WBC 5.7 k/uL (3.8-10.6)
[2020-07-06 13:29] LABS: ALT 13 U/L (4-34); AST 24 U/L (14-36); African American GFR (CKD) >90 (>60 ml/min/1.73 sqM); Albumin 3.7 g/dL (3.5-5.0); Alkaline Phosphatase 96 U/L (38-126); Anion Gap 7 mmol/L; Blood Urea Nitrogen 6 mg/dL (7-17); Calcium 8.9 mg/dL (8.4-10.2); Carbon Dioxide 30 mmol/L (22-30); Chloride 101 mmol/L (98-107); Glucose 93 mg/dL (74-99); Non-African American GFR(CKD) >90 (>60 ml/min/1.73 sqM); Potassium 4.1 mmol/L (3.5-5.1); Sodium 138 mmol/L (137-145); Total Bilirubin 0.5 mg/dL (0.2-1.3); Total Protein 6.9 g/dL (6.3-8.2)
--- NOTE | 2020-07-06 15:48 | XR ---
EXAMINATION TYPE: XR chest 1V portable DATE OF EXAM: 07/06/2020 COMPARISON: 02/01/2016 INDICATION: History of pneumonia TECHNIQUE: Frontal view of the chest is obtained. FINDINGS: The heart size is normal. The pulmonary vasculature is normal. The lungs are clear. IMPRESSION: 1. No acute pulmonary process.
[2020-07-06 16:03] VITALS: BP 131/65; PULSE 69
[2020-07-06] MEDS ORDERED: CEPHALEXIN 500 MG CAP PO STA (16:08)
[2020-07-06 16:36] LABS: Amorphous Sediment,Urine Moderate /hpf; Appearance,Urine Cloudy (Clear); Bacteria,Urine Rare /hpf; Bilirubin,Urine Negative (Negative); Blood,Urine Negative (Negative); Color,Urine Yellow; Glucose,Urine (UA) Negative (Negative); Hyaline Casts,Urine 1 /lpf (0-2); Ketones,Urine Negative (Negative); Leukocyte Esterase,Urine Small (Negative); Mucus,Urine Occasional /hpf; Nitrite,Urine Negative (Negative); Protein,Urine Negative (Negative); RBC,Urine 2 /hpf (0-5); Squamous Epithelial Cell,Urine 17 /hpf (0-4); Urobilinogen,Urine <2.0 mg/dL (<2.0); WBC,Urine 3 /hpf (0-5)
[2020-07-06 16:42] LABS: Amphetamine Screen,Urine Not Detected (NotDetected); Barbiturate Screen,Urine Not Detected (NotDetected); Benzodiazepines Screen,Urine Not Detected (NotDetected); Cocaine Screen,Urine Detected (NotDetected); Methadone Screen, Urine Not Detected (NotDetected); Opiate Screen,Urine Detected (NotDetected); Oxycodone Screen, Urine Not Detected (NotDetected); Phencyclidine Screen,Urine Not Detected (NotDetected); Tricyclic Antidepressant,Urine Not Detected (NotDetected); Urn Cannabinoid Scrn Not Detected (NotDetected)
== END 2020-07-06 16:26 | disposition home or self-care (01) ==
LOC: EC 11:59
DX: F43.21 Adjustment disorder with depressed mood (principal); F11.10 Opioid abuse, uncomplicated; L73.9 Follicular disorder, unspecified; F17.200 Nicotine dependence, unspecified, uncomplicated; Z88.1 Allergy status to other antibiotic agents
CPT/HCPCS: 36415; 71045; 80053; 80306; 81001; 82075; 85025; 99285

== ENCOUNTER → 2020-07-23 | Outpatient (CLI) | payer OTHER | END | disposition home or self-care (01) | LOC: LABWHC1 14:33 | PROVIDERS: ATTEND Family Medicine | DX: Z53.9 Procedure and treatment not carried out, unspecified reason (principal) ==

== ENCOUNTER → 2020-07-26 | Outpatient (CLI) | payer OTHER ==
[2020-07-26 19:10] LABS: African American GFR (CKD) 138.8 (60.0-200.0); Albumin 4.7 g/dL (3.80-4.90); Albumin/Globulin Ratio 2.24 (1.60-3.17); Anion Gap 5.9 mmol/L (4.00-12.00); BUN/Creat Ratio 31.67 Ratio (12.00-20.00); Calcium 9.2 mg/dL (8.7-10.3); Carbon Dioxide 27.1 mmol/L (21.6-31.8); Globulin 2.1 g/dL (1.6-3.3); Non-African American GFR(CKD) 119.8 (60.0-200.0); Total Bilirubin 0.3 mg/dL (0.2-1.2); Total Protein 6.8 g/dL (6.2-8.2)
== END | disposition home or self-care (01) ==
LOC: LABWHC1 13:19
PROVIDERS: ATTEND Family Medicine
DX: F11.20 Opioid dependence, uncomplicated (principal)
CPT/HCPCS: 36415; 80053

== ENCOUNTER 2021-07-28 21:25 | Emergency (ER) | payer OTHER ==
[2021-07-28 21:45] VITALS: BP 148/62; PULSE 94; RESP 20; TEMP 98.8
[2021-07-28] MEDS ORDERED: SULFAMETHOX-TMP 800-160MG 1 EACH TAB PO STA (22:17)
[2021-07-28] MEDS ORDERED: LORazepam 1 MG TAB PO STA (22:17)
[2021-07-28] MEDS ORDERED: BACITRACIN OINT 1 EACH PACKET TOPICAL ONE (22:17)
--- NOTE | 2021-07-28 22:22 | ED ---
General Adult HPI - General Chief complaint: Skin/Abscess/Foreign Body Stated complaint: Facial sore Time Seen by Provider: 07/28/21 21:53 Source: patient, RN notes reviewed Mode of arrival: ambulatory Limitations: no limitations - History of Present Illness Initial comments: This is an anxious 36-year-old female who presents to the emergency department for evaluation of sores on her face. Patient states they have been ongoing for the past few weeks but have worsened over the past few days. Patient states she has pinched and squeezed pus out of the sores, but they have scabbed over and become crusty with increased redness. Patient states she is embarrassed to go to work because of her appearance. She is restless and anxious. She denies any recreational drug use states she has been clean for the past 7 months. Does have a history of MRSA. Denies fever, chills, chest pain, shortness of breath, abdominal pain, nausea, or vomiting. - Related Data Previous Rx's Medication Instructions Recorded Sulfamethox-Tmp 800-160Mg [Bactrim 1 each PO Q12HR 10 Days #20 tab 07/28/21 Ds] Allergies Allergy/AdvReac Type Severity Reaction Status Date / Time vancomycin Allergy Rash/Hives/ Verified 07/28/21 22:29 Dyspnea Review of Systems ROS Statement: Those systems with pertinent positive or pertinent negative responses have been documented in the HPI. ROS Other: All systems not noted in ROS Statement are negative. Past Medical History Past Medical History: No Reported History Additional Past Medical History / Comment(s): adjustment disorder. Major Depression. Polysubstance abuse History of Any Multi-Drug Resistant Organisms: MRSA Date of last positivie culture/infection: 03/25/20 MDRO Source:: Chest Past Surgical History: Section Past Anesthesia/Blood Transfusion Reactions: No Reported Reaction Past Psychological History: Anxiety, Bipolar, Depression Smoking Status: Vaper Past Alcohol Use History: None Reported Past Drug Use History: Cocaine, Heroin, IV Drug Use, Marijuana, Methamphetamine General Exam Limitations: no limitations (Well-developed, well-nourished female who is anxious and restless. Initial temperature 98.8, pulse 94, respirations 20, blood pressure 148/62, pulse ox 100% on room air.) General appearance: alert, anxious ENT exam: Present: normal exam, normal oropharynx, mucous membranes moist Neck exam: Present: normal inspection, full ROM. Absent: tenderness, meningismus, lymphadenopathy Respiratory exam: Present: normal lung sounds bilaterally. Absent: respiratory distress, wheezes, rales, rhonchi, stridor Cardiovascular Exam: Present: regular rate, normal rhythm, normal heart sounds. Absent: systolic murmur, diastolic murmur, rubs, gallop, clicks Neurological exam: Present: alert, oriented X3 Psychiatric exam: Present: anxious, other (Restless) Skin exam: Present: warm, dry Expanded Type of lesion: Present: other (scabbed over erosions scattered on face, chin, nose, and at hairline. Mildly erythematous surrounding wounds. Evidence of yellow drainage that is crusted along borders.) Course Vital Signs 07/28/21 21:42 Temperature 98.8 F Pulse Rate 94 Respiratory 20 Rate Blood Pressure 148/62 O2 Sat by Pulse 100 Oximetry Medical Decision Making - Medical Decision Making 36-year-old female presents to the emergency department for evaluation of sores on her face. Upon exam, patient appears restless and anxious. She is tearful explaining that she has sores all over her face and she is embarrassed about that. Sores on face appeared to have been abscesses that were irritated by pressure or picking. There are erythematous areas with scabbed over erosions scattered across the face and along the hairline. Patient does have a history of MRSA and previous methamphetamine use; patient states she has been clean for 7 months. Encouraged gentle cleansing with mild soap and water. Application of topical antibiotic ointment. Due to her history of MRSA, we will start patient on Bactrim. She is encouraged to follow up with her PCP for recheck. Return parameters were discussed in detail. Patient was provided a note for work. This patient's care was discussed with my attending Dr. Ribera. Disposition Clinical Impression: Cutaneous abscess of face Disposition: HOME SELF-CARE Condition: Stable Instructions (If sedation given, give patient instructions): Abscess (ED) Additional Instructions: Gently cleanse the wounds with mild soap and water. Avoid peroxide. Apply topical ointment twice daily. Take antibiotic as directed. Follow-up with your PCP for recheck in the next few days. Return to the emergency department with any new, worsening, or concerning symptoms. Prescriptions: Sulfamethox-Tmp 800-160Mg [Bactrim Ds] 1 each PO Q12HR 10 Days #20 tab Is patient prescribed a controlled substance at d/c from ED?: No Referrals: None,Stated [Primary Care Provider] - 1-2 days Time of Disposition: 22:51
== END 2021-07-28 23:11 | disposition home or self-care (01) ==
LOC: EC 21:25
DX: L02.01 Cutaneous abscess of face (principal); F41.9 Anxiety disorder, unspecified; F31.9 Bipolar disorder, unspecified; F17.290 Nicotine dependence, other tobacco product, uncomplicated; F12.90 Cannabis use, unspecified, uncomplicated
CPT/HCPCS: 99283

== ENCOUNTER 2023-02-06 12:01 | Emergency (ER) | payer OTHER ==
--- NOTE | 2023-02-06 12:27 | ED ---
Skin/Abscess/FB HPI - General Chief complaint: Skin/Abscess/Foreign Body Stated complaint: left arm pain Time Seen by Provider: 02/06/23 12:11 Source: patient, RN notes reviewed Mode of arrival: ambulatory Limitations: no limitations - History of Present Illness Initial comments: 38-year-old female presents emergency department with chief complaint of left axilla abscess. Patient states started 3 days ago she has a history of MRSA from IV drug use. She states she has not used in 3 years. She states it is painful, slightly red and tender to touch. - Related Data Previous Rx's Medication Instructions Recorded Sulfamethox-Tmp 800-160Mg [Bactrim 1 each PO Q12HR 10 Days #20 tab 07/28/21 Ds] Sulfamethox-Tmp 800-160Mg [Bactrim 1 each PO Q12HR #20 tab 02/06/23 Ds] Allergies Allergy/AdvReac Type Severity Reaction Status Date / Time vancomycin Allergy Rash/Hives/ Verified 02/06/23 12:04 Dyspnea Review of Systems ROS Statement: Those systems with pertinent positive or pertinent negative responses have been documented in the HPI. ROS Other: All systems not noted in ROS Statement are negative. Past Medical History Past Medical History: No Reported History Additional Past Medical History / Comment(s): adjustment disorder. Major Depression. Polysubstance abuse History of Any Multi-Drug Resistant Organisms: MRSA Date of last positivie culture/infection: 03/25/20 MDRO Source:: Chest Past Surgical History: Section Past Anesthesia/Blood Transfusion Reactions: No Reported Reaction Past Psychological History: Anxiety, Bipolar, Depression Smoking Status: Vaper Past Alcohol Use History: None Reported Past Drug Use History: Cocaine, Heroin, IV Drug Use, Marijuana, Methamphetamine General Exam Limitations: no limitations General appearance: alert, in no apparent distress Head exam: Present: atraumatic, normocephalic, normal inspection Respiratory exam: Present: normal lung sounds bilaterally. Absent: respiratory distress, wheezes, rales, rhonchi, stridor Cardiovascular Exam: Present: regular rate, normal rhythm, normal heart sounds. Absent: systolic murmur, diastolic murmur, rubs, gallop, clicks Extremities exam: Present: other (Left axilla there is a 1 cm minimal fluctuant tender abscess) Course Vital Signs 02/06/23 12:03 Temperature 98.5 F Pulse Rate 103 H Respiratory 18 Rate Blood Pressure 131/79 O2 Sat by Pulse 99 Oximetry Procedures - Incision & Drainage Consent Obtained: verbal consent Site: other (Left axilla) Size (cm): 1 I&D Cleaning Method: Alcohol Wipe Sterile Field Used?: No Needle Aspiration Performed?: Yes I&D Drainage Obtained: Pus Culture Obtained?: Yes Patient Tolerated Procedure: well, no complications Medical Decision Making - Medical Decision Making Was pt. sent in by a medical professional or institution (SUN Weaver, DIRECTOR MEDICAL AFFAIRS, urgent care, hospital, or usp...) When possible be specific @ -No Did you speak to anyone other than the patient for history (EMS, parent, family, police, friend...)? What history was obtained from this source @ -No Did you review nursing and triage notes (agree or disagree)? Why? @ -I reviewed and agree with nursing and triage notes Were old charts reviewed (outside hosp., previous admission, EMS record, old EKG, old radiological studies, urgent care reports/EKG's, usp records)? Report findings @ -No old charts were reviewed Differential Diagnosis (chest pain, altered mental status, abdominal pain women, abdominal pain men, vaginal bleeding, weakness, fever, dyspnea, syncope, headache, dizziness, GI bleed, back pain, seizure, CVA, palpatations, mental health, musculoskeletal)? @ -Cellulitis, abscess EKG interpreted by me (3pts min.). @ -None X-rays interpreted by me (1pt min.). @ -None done CT interpreted by me (1pt min.). @ -None done U/S interpreted by me (1pt. min.). @ -None done What testing was considered but not performed or refused? (CT, X-rays, U/S, labs)? Why? @ -None What meds were considered but not given or refused? Why? @ -None Did you discuss the management of the patient with other professionals (professionals i.e. SUN Weaver, DIRECTOR MEDICAL AFFAIRS, lab, RT, psych nurse, social service agency director, rn admissions, teacher, security officers and guards, sample case porter)? Give summary @ -No Was smoking cessation discussed for >3mins.? @ -No Was critical care preformed (if so, how long)? @ -No Were there social determinants of health that impacted care today? How? (Homelessness, low income, unemployed, alcoholism, drug addiction, transportation, low edu. Level, literacy, decrease access to med. care, [facility], rehab)? @ -No Was there de-escalation of care discussed even if they declined (Discuss DNR or withdrawal of care, Hospice)? DNR status @ -No What co-morbidities impacted this encounter? (DM, HTN, Smoking, COPD, CAD, Cancer, CVA, ARF, Chemo, Hep., AIDS, mental health diagnosis, sleep apnea, morbid obesity)? @ -None Was patient admitted / discharged? Hospital course, mention meds given and route, prescriptions, significant lab abnormalities, going to OR and other pertinent info. @ -Discharge patient has abscess this did have a aspiration, wound culture was obtained patient discharged on oral antibiotics, warm compresses Undiagnosed new problem with uncertain prognosis? @ -No Drug Therapy requiring intensive monitoring for toxicity (Heparin, Nitro, Insulin, Cardizem)? @ -No Were any procedures done? @ -I&D Diagnosis/symptom? @ -Left axilla abscess Acute, or Chronic, or Acute on Chronic? @ -Acute Uncomplicated (without systemic symptoms) or Complicated (systemic symptoms)? @ -Uncomplicated Side effects of treatment? @ -No Exacerbation, Progression, or Severe Exacerbation? @ -No Poses a threat to life or bodily function? How? (Chest pain, [place], OR, pneumonia, PE, COPD, DKA, ARF, appy, cholecystitis, CVA, Diverticulitis, Homicidal, Suicidal, threat to staff... and all critical care pts) @ -No Disposition Clinical Impression: Abscess of left axilla Disposition: HOME SELF-CARE Condition: Stable Instructions (If sedation given, give patient instructions): Abscess Incision and Drainage (DC) Additional Instructions: Please return to the Emergency Department if symptoms worsen or any other concerns. Prescriptions: Sulfamethox-Tmp 800-160Mg [Bactrim Ds] 1 each PO Q12HR #20 tab Is patient prescribed a controlled substance at d/c from ED?: No Referrals: Francisco Javier Schroeder MD [Primary Care Provider] - 1-2 days Time of Disposition: 12:27
[2023-02-06 13:03] VITALS: BP 129/81; PULSE 91; RESP 16; TEMP 98.3
== END 2023-02-06 13:05 | disposition home or self-care (01) ==
LOC: EC 12:01
DX: L02.412 Cutaneous abscess of left axilla (principal); F17.290 Nicotine dependence, other tobacco product, uncomplicated; Z86.59 Personal history of other mental and behavioral disorders; Z88.5 Allergy status to narcotic agent
CPT/HCPCS: 10060; 87070; 87077; 87186; 87205; 99282

== ENCOUNTER 2023-03-27 17:51 | Emergency (ER) | payer OTHER ==
--- NOTE | 2023-03-27 18:05 | ED ---
Eye Problem HPI - General Source: patient, RN notes reviewed Mode of arrival: ambulatory Limitations: no limitations - History of Present Illness chief complaint: eye pain <Bessie Quezada - Last Filed: 03/27/23 18:03> <Bree Boateng - Last Filed: 03/28/23 00:57> - General Chief complaint: Eye Problems Stated complaint: left eye swollen/painful Time Seen by Provider: 03/27/23 18:03 - History of Present Illness Initial comments: This is a 38-year-old female who presents to the emergency department for left eye pain and swelling. States that yesterday she noticed a small bump on her left eye, and when she woke up, her eye was much more swollen and painful. She went to [facility] this morning and was told that it may be a bug bite, and was started on clindamycin. States that her symptoms have continued to worsen. States that the swelling and pain have both progressed and she is now barely able to open the eye and she is struggling to see out of it. Denies any injuries. (Bessie Quezada) 38-year-old female with history of IVDA presenting with chief complaint of swelling and erythema surrounding the left eye. Patient states that symptoms started yesterday. She was seen at [facility] this morning, it was thought that she may have been bitten by a spider. She was sent home on clindamycin. She took a nap this evening and when she woke up she was unable to open the eye. Swelling is worsening. No fevers or chills. No nausea or vomiting. No globe pain. No pain with extraocular movements. No neck pain. No headache. Denies any recent injuries. (Bree Boateng) - Related Data Previous Rx's Medication Instructions Recorded Sulfamethox-Tmp 800-160Mg [Bactrim 1 each PO Q12HR 10 Days #20 tab 07/28/21 Ds] Sulfamethox-Tmp 800-160Mg [Bactrim 1 each PO Q12HR #20 tab 02/06/23 Ds] Allergies Allergy/AdvReac Type Severity Reaction Status Date / Time vancomycin Allergy Rash/Hives/ Verified 03/27/23 18:07 Dyspnea Review of Systems ROS Other: All systems not noted in ROS Statement are negative. <Bessie Quezada - Last Filed: 03/27/23 18:03> ROS Other: All systems not noted in ROS Statement are negative. <Bree Boateng - Last Filed: 03/28/23 00:57> ROS Statement: Those systems with pertinent positive or pertinent negative responses have been documented in the HPI. Past Medical History Past Medical History: No Reported History Additional Past Medical History / Comment(s): adjustment disorder. Major Depression. Polysubstance abuse History of Any Multi-Drug Resistant Organisms: MRSA Date of last positivie culture/infection: 02/06/23 MDRO Source:: Left Axilla Past Surgical History: Section Past Anesthesia/Blood Transfusion Reactions: No Reported Reaction Past Psychological History: Anxiety, Bipolar, Depression Smoking Status: Vaper Past Alcohol Use History: None Reported Past Drug Use History: Cocaine, Heroin, IV Drug Use, Marijuana, Methamphetamine <Bessie Quezada - Last Filed: 03/27/23 18:03> General Exam <Bessie Quezada - Last Filed: 03/27/23 18:03> Limitations: no limitations General appearance: alert, in no apparent distress Head exam: Present: atraumatic, normocephalic, normal inspection Eye exam: Present: PERRL, EOMI, periorbital swelling, periorbital tenderness Expanded IOP (R) in mmH IOP (L) in mmH Neck exam: Present: normal inspection, full ROM Respiratory exam: Present: normal lung sounds bilaterally. Absent: respiratory distress, wheezes, rales, rhonchi, stridor Cardiovascular Exam: Present: regular rate, normal rhythm, normal heart sounds. Absent: systolic murmur, diastolic murmur, rubs, gallop, clicks Neurological exam: Present: alert, oriented X3 Psychiatric exam: Present: agitated <Bree Boateng - Last Filed: 03/28/23 00:57> - General Exam Comments Initial Comments: Visual Physical Exam Vital signs reviewed General: Well-appearing, nontoxic, no acute distress. Head: Normocephalic, atraumatic Eyes: Left eye swelling ENT: Airway patent Chest: Nonlabored breathing Skin: No visual rash, normal skin tone Neuro: Alert and oriented 3 Musculoskeletal: No gross abnormalities I performed the QuickNote portion of this chart. Signed Bessie Quezada PA-C. (Bessie Quezada) Course Vital Signs 03/27/23 18:02 Temperature 98.6 F Pulse Rate 104 H Respiratory 18 Rate Blood Pressure 125/89 O2 Sat by Pulse 98 Oximetry Medical Decision Making <Bree Boateng - Last Filed: 03/28/23 00:57> - Medical Decision Making Was pt. sent in by a medical professional or institution (, SUN, LEAD DEVELOPER, urgent care, hospital, or [facility]...) When possible be specific @ -[No] Did you speak to anyone other than the patient for history (EMS, parent, family, police, friend...)? What history was obtained from this source @ -[No] Did you review nursing and triage notes (agree or disagree)? Why? @ -[I reviewed and agree with nursing and triage notes] Were old charts reviewed (outside hosp., previous admission, EMS record, old EKG, old radiological studies, urgent care reports/EKG's, [facility] records)? Report findings @ -[No old charts were reviewed] Differential Diagnosis (chest pain, altered mental status, abdominal pain women, abdominal pain men, vaginal bleeding, weakness, fever, dyspnea, syncope, headache, dizziness, GI bleed, back pain, seizure, CVA, palpatations, mental health, musculoskeletal)? @ -Differential includes periorbital cellulitis, orbital cellulitis, ALLERGIC reaction, this is not an all inclusive list EKG interpreted by me (3pts min.). @ -[As above] X-rays interpreted by me (1pt min.). @ -[None done] CT interpreted by me (1pt min.). @ -[None done] U/S interpreted by me (1pt. min.). @ -[None done] What testing was considered but not performed or refused? (CT, X-rays, U/S, labs)? Why? @ -CBC, CMP, lactic acid are ordered and the patient is told she may be admitted for IV antibiotics and evaluation by infectious disease. Patient refused after multiple attempts, stating "I don't want to get poked a million times". What meds were considered but not given or refused? Why? @ -[None] Did you discuss the management of the patient with other professionals (professionals i.e. Dr., PA, LEAD DEVELOPER, lab, RT, psych nurse, social work program coordinator, restaurant shift supervisor, teacher, special loan officer, pillowcase cleaner)? Give summary @ -[No] Was smoking cessation discussed for >3mins.? @ -[No] Was critical care preformed (if so, how long)? @ -[No] Were there social determinants of health that impacted care today? How? (Homelessness, low income, unemployed, alcoholism, drug addiction, transportation, low edu. Level, literacy, decrease access to med. care, halfway, rehab)? @ -IVDA Was there de-escalation of care discussed even if they declined (Discuss DNR or withdrawal of care, Hospice)? DNR status @ -[No] What co-morbidities impacted this encounter? (DM, HTN, Smoking, COPD, CAD, Cancer, CVA, ARF, Chemo, Hep., AIDS, mental health diagnosis, sleep apnea, morbid obesity)? @ -[None] Was patient admitted / discharged? Hospital course, mention meds given and route, prescriptions, significant lab abnormalities, going to OR and other pertinent info. @ -Patient left AGAINST MEDICAL ADVICE. 38-year-old female presenting with redness and swelling surrounding the left eye which started yesterday. She was seen at [facility] earlier today and started on clindamycin, however since then the swelling has worsened. Patient has history of IVDA. On physical examination there is a great deal of periorbital redness and swelling. Tender on exam. Extraocular motions are intact him patient denies any pain with extraocular motions. No injection or chemosis. No fevers. I explained to the patient that given her history, it would be best to obtain lab work and admitted for evaluation by infectious disease. Patient refused. Patient was given Benadryl and IM Solu-Medrol 125 mg. She showed some mild improvement. Multiple attempts were made to establish IV access but the patient continued to refuse. She then chose to leave AGAINST MEDICAL ADVICE. She is of sound mind and body and able to make her own decisions. Patient should continue the clindamycin that was started earlier today from [facility] and report back to ER with any new or worsening symptoms. I discussed this case with my attending Dr. Ford Undiagnosed new problem with uncertain prognosis? @ -[No] Drug Therapy requiring intensive monitoring for toxicity (Heparin, Nitro, Insulin, Cardizem)? @ -[No] Were any procedures done? @ -[No] Diagnosis/symptom? @ -periorbital cellulitis Acute, or Chronic, or Acute on Chronic? @ -Acute Uncomplicated (without systemic symptoms) or Complicated (systemic symptoms)? @ -complicated Side effects of treatment? @ -[No] Exacerbation, Progression, or Severe Exacerbation? @ -[No] Poses a threat to life or bodily function? How? (Chest pain, [place], [place], pneumonia, PE, COPD, DKA, ARF, appy, cholecystitis, CVA, Diverticulitis, Homicidal, Suicidal, threat to staff... and all critical care pts) @ -Potentially, given the patient's presentation I advised her that she should be admitted for IV antibiotics to prevent any progression of the infection which could lead to sepsis and end organ failure however she refused (Bree Boateng) Disposition <Bessie Quezada - Last Filed: 03/27/23 18:03> <Bree Boateng - Last Filed: 03/28/23 00:57> Clinical Impression: Periorbital cellulitis Disposition: LEFT AGAINST MEDICAL ADVICE Condition: Undetermined Referrals: Francisco Javier Schroeder MD [Primary Care Provider] - 1-2 days
[2023-03-27 18:06] VITALS: BP 125/89; PULSE 104; RESP 18; TEMP 98.6
[2023-03-27] MEDS ORDERED: diphenhydrAMINE 25 MG CAP PO STA ×2 (19:24→20:22)
[2023-03-27] MEDS ORDERED: methylPREDNISolone SOD SUCCI 125 MG/2 ML VIAL IM ONE ×2 (19:24→20:21)
[2023-03-27] MEDS ORDERED: methylPREDNISolone SOD SUCCI 125 MG/2 ML VIAL IV STA (19:36)
[2023-03-27] MEDS ORDERED: KETOROLAC 15 MG/ML 1 ML VIAL IM STA (20:21)
== END 2023-03-27 22:41 | disposition left against medical advice (07) ==
LOC: EC 17:51
DX: L03.213 Periorbital cellulitis (principal); F17.290 Nicotine dependence, other tobacco product, uncomplicated; Z53.29 Procedure and treatment not carried out because of patient's decision for other reasons
CPT/HCPCS: 99283; 96372 ×2; J2930; J1885

== ENCOUNTER 2023-12-22 20:59 | Emergency (ER) | payer OTHER ==
[2023-12-22 21:37] VITALS: BP 145/103; PULSE 98; RESP 18; TEMP 98.3
[2023-12-22] MEDS ORDERED: ONDANSETRON 4 MG/2 ML VIAL IVP STA (21:48)
[2023-12-22] MEDS ORDERED: KETOROLAC 15 MG/ML 1 ML VIAL IVP STA (21:48)
[2023-12-22] MEDS ORDERED: SODIUM CHLORIDE 0.9% 1,000 ML IV STA (21:48)
[2023-12-22] MEDS ORDERED: HYDROmorphone 1 MG/ML 1 ML SYRINGE IVP STA (21:49)
[2023-12-22 22:36] LABS: Amorphous Sediment,Urine Occasional /hpf; Appearance,Urine Cloudy (Clear); Bacteria,Urine Rare /hpf; Bilirubin,Urine Negative (Negative); Blood,Urine Negative (Negative); Color,Urine Light Yellow; Glucose,Urine (UA) Negative (Negative); Ketones,Urine Negative (Negative); Leukocyte Esterase,Urine Moderate (Negative); Mucus,Urine Rare /hpf; Nitrite,Urine Negative (Negative); Protein,Urine Trace (Negative); RBC,Urine 1 /hpf (0-5); Specific Gravity,Urine 1.024 (1.001-1.035); Squamous Epithelial Cell,Urine 42 /hpf (0-4); WBC,Urine 6 /hpf (0-5)
--- NOTE | 2023-12-22 23:28 | ED ---
Abdominal Pain HPI - General Chief Complaint: Abdominal Pain Stated Complaint: abdominal pain Time Seen by Provider: 12/22/23 21:39 Source: patient, RN notes reviewed Mode of arrival: ambulatory Limitations: no limitations - History of Present Illness Initial Comments: This is a 38-year-old female who presents to the emergency department for abdominal pain. Patient states that she developed right lower quadrant pain yesterday that has since started to progress. Reports associated nausea and vomiting. She has not measured any fevers. She went to [facility] earlier in the day. They attempted to get an IV but were unable to do so and patient subsequently left upset, prompting her to come to this emergency department. Reports a history of IV drug use and states that her veins are typically hard to find as a result. - Related Data Previous Rx's Medication Instructions Recorded Sulfamethox-Tmp 800-160Mg [Bactrim 1 each PO Q12HR 10 Days #20 tab 07/28/21 Ds] Sulfamethox-Tmp 800-160Mg [Bactrim 1 each PO Q12HR #20 tab 02/06/23 Ds] Allergies Allergy/AdvReac Type Severity Reaction Status Date / Time vancomycin Allergy Rash/Hives/ Verified 03/27/23 18:07 Dyspnea Review of Systems ROS Statement: Those systems with pertinent positive or pertinent negative responses have been documented in the HPI. ROS Other: All systems not noted in ROS Statement are negative. Past Medical History Past Medical History: No Reported History Additional Past Medical History / Comment(s): adjustment disorder. Major Depression. Polysubstance abuse History of Any Multi-Drug Resistant Organisms: MRSA Date of last positivie culture/infection: 02/06/23 MDRO Source:: Left Axilla Past Surgical History: Section Past Anesthesia/Blood Transfusion Reactions: No Reported Reaction Past Psychological History: Anxiety, Bipolar, Depression Smoking Status: Vaper Past Alcohol Use History: None Reported Past Drug Use History: Cocaine, Heroin, IV Drug Use, Marijuana, Methamphetamine General Exam Limitations: no limitations General appearance: alert, in no apparent distress Head exam: Present: atraumatic, normocephalic, normal inspection Respiratory exam: Present: normal lung sounds bilaterally. Absent: respiratory distress, wheezes, rales, rhonchi, stridor Cardiovascular Exam: Present: regular rate, normal rhythm, normal heart sounds. Absent: systolic murmur, diastolic murmur, rubs, gallop, clicks GI/Abdominal exam: Present: soft, tenderness (RLQ), normal bowel sounds. Absent: distended Neurological exam: Present: alert, oriented X3, CN II-XII intact Psychiatric exam: Present: normal affect, normal mood Skin exam: Present: warm, dry, intact, normal color. Absent: rash Course Vital Signs 12/22/23 20:59 Temperature 98.3 F Pulse Rate 98 Respiratory 18 Rate Blood Pressure 145/103 O2 Sat by Pulse 100 Oximetry Medical Decision Making - Medical Decision Making This is a 38 year old female who presents to the emergency department for abdominal pain. Was pt. sent in by a medical professional or institution? @ -No Did you speak to anyone other than the patient for history? @ -No Did you review nursing and triage notes? @ -Yes, and I agree, it is accurate with regards to the patient's symptoms. Were old charts reviewed? @ -No Differential Diagnosis? @ -Differential Abdominal Pain Women: Appendicitis, Cholecystitis, diverticulosis, ischemic bowel, pancreatitis, hepatitis, UTI, gastroenteritis, AAA, incarcerated hernia, bowel obstruction, constipation, inflammatory bowel, hepatitis, peptic ulcer disease, splenic infarction, perforated viscus, vulvitis, ovarian torsion, PID, kidney stone, placenta abruption, this is not meant to be an all-inclusive list EKG interpreted by me (3pts min.)? @ -Not obtained X-rays interpreted by me (1pt min.)? @ -Not obtained CT interpreted by me (1pt min.)? @ -Patient eloped before it could be completed U/S interpreted by me (1pt. min.)? @ -Not obtained What testing was considered but not performed? (CT, X-rays, U/S, labs)? Why? @ -None What meds were considered but not given? Why? @ -None Did you discuss the management of the patient with other professionals? @ -No Did you reconcile home meds? @ -No Was smoking cessation discussed for >3mins.? @ -No Was critical care preformed (if so, how long)? @ -No Were there social determinants of health that impacted care today? How? (Homelessness, low income, unemployed, alcoholism, drug addiction, transportation, low edu. Level, literacy, decrease access to med. care, detention, rehab)? @ -No Was there de-escalation of care discussed even if they declined? (Discuss DNR or withdrawal of care, Hospice)? @ -No What co-morbidities impacted this encounter? (DM, HTN, Smoking, COPD, CAD, Cancer, CVA, Hep., AIDS, mental health diagnosis, sleep apnea, morbid obesity)? @ -None Was patient admitted / discharged? @ -Lab work and a CT scan were ordered as well as medication help with the patient's pain and nausea. However, the nursing staff got tied up with a critical patient and she became frustrated that her needs were not attended to in a rather timely manner. Patient subsequently eloped from the emergency department prior to receiving any medication or having lab work or imaging done. She did submit a urinalysis which was largely contaminated. Undiagnosed new problem with uncertain prognosis? @ -None Drug Therapy requiring intensive monitoring for toxicity (Heparin, Nitro, Insulin, Cardizem)? @ -None Were any procedures done? @ -None Diagnosis/symptom? @ -Abdominal pain Acute, or Chronic, or Acute on Chronic? @ -Acute Uncomplicated (without systemic symptoms) or Complicated (systemic symptoms)? @ -Uncomplicated Side effects of treatment? @ -None Exacerbation, Progression, or Severe Exacerbation] @ -Not applicable Poses a threat to life or bodily function? @ -This will depend on the cause - Lab Data Lab Results 12/22/23 12/22/23 Range/Units 21:50 21:50 Urine Color Light Yellow Urine Appearance Cloudy H (Clear) Urine pH 7.0 (5.0-8.0) Ur Specific [place] 1.024 (1.001-1.035) Urine Protein Trace H (Negative) Urine Glucose (UA) Negative (Negative) Urine Ketones Negative (Negative) Urine Blood Negative (Negative) Urine Nitrite Negative (Negative) Urine Bilirubin Negative (Negative) Urine Urobilinogen 4.0 (<2.0) mg/dL Ur Leukocyte Esterase Moderate H (Negative) Urine RBC 1 (0-5) /hpf Urine WBC 6 H (0-5) /hpf Ur Squamous Epith Cells 42 H (0-4) /hpf Amorphous Sediment Occasional H (None) /hpf Urine Bacteria Rare H (None) /hpf Urine Mucus Rare H (None) /hpf Urine HCG, Qual Not Detected (Not Detectd) Disposition Clinical Impression: Abdominal pain Disposition: LEFT AGAINST MEDICAL ADVICE Condition: Undetermined Referrals: None,Stated [Primary Care Provider] - 1-2 days
== END 2023-12-22 23:25 | disposition left against medical advice (07) ==
LOC: EC 20:59
DX: R10.31 Right lower quadrant pain (principal); F17.290 Nicotine dependence, other tobacco product, uncomplicated; Z88.8 Allergy status to other drugs, medicaments and biological substances; Z53.29 Procedure and treatment not carried out because of patient's decision for other reasons
CPT/HCPCS: 81001; 81025; 99283

== ENCOUNTER 2024-04-23 18:59 | Emergency (ER) | payer OTHER ==
[2024-04-23 19:12] VITALS: PULSE 82; RESP 18
--- NOTE | 2024-04-23 19:34 | ED ---
Headache HPI - General Chief Complaint: Headache Stated Complaint: migraine Time Seen by Provider: 04/23/24 19:20 Source: RN notes reviewed, old records reviewed Mode of arrival: ambulatory Limitations: no limitations - History of Present Illness Initial Comments: This is a 39-year-old female to the ER for headache chronic migraine severe migraine headaches MD Complaint: headache, "migraine" -: days(s) Onset Description: sudden, gradual, now resolved, with exertion Location: right, left, frontal, temporal Severity: moderate, severe Severity scale (1-10): 9 Quality: aching, sharp Consistency: constant Improves With: nothing Worsens With: none Associated Symptoms: nausea, vomiting Other Symptoms: other Treatments Prior to Arrival: none - Related Data Previous Rx's Medication Instructions Recorded Sulfamethox-Tmp 800-160Mg [Bactrim 1 each PO Q12HR 10 Days #20 tab 07/28/21 Ds] Sulfamethox-Tmp 800-160Mg [Bactrim 1 each PO Q12HR #20 tab 02/06/23 Ds] Allergies Allergy/AdvReac Type Severity Reaction Status Date / Time vancomycin Allergy Rash/Hives/ Verified 04/23/24 19:09 Dyspnea Review of Systems ROS Statement: Those systems with pertinent positive or pertinent negative responses have been documented in the HPI. ROS Other: All systems not noted in ROS Statement are negative. Past Medical History Past Medical History: No Reported History Additional Past Medical History / Comment(s): adjustment disorder. Major Depression. Polysubstance abuse. migraine History of Any Multi-Drug Resistant Organisms: MRSA Date of last positivie culture/infection: 02/06/23 MDRO Source:: Left Axilla Past Surgical History: Section Past Anesthesia/Blood Transfusion Reactions: No Reported Reaction Past Psychological History: Anxiety, Bipolar, Depression Smoking Status: Vaper Past Alcohol Use History: None Reported Past Drug Use History: Cocaine, Heroin, IV Drug Use, Marijuana, Methamphetamine General Exam Limitations: no limitations General appearance: alert, in no apparent distress Head exam: Present: atraumatic, normocephalic, normal inspection Eye exam: Present: normal appearance, PERRL, EOMI. Absent: scleral icterus, conjunctival injection, periorbital swelling ENT exam: Present: normal exam, mucous membranes moist Neck exam: Present: normal inspection. Absent: tenderness, meningismus, lymphadenopathy Respiratory exam: Present: normal lung sounds bilaterally. Absent: respiratory distress, wheezes, rales, rhonchi, stridor Cardiovascular Exam: Present: regular rate, normal rhythm, normal heart sounds. Absent: systolic murmur, diastolic murmur, rubs, gallop, clicks GI/Abdominal exam: Present: soft, normal bowel sounds. Absent: distended, tenderness, guarding, rebound, rigid Extremities exam: Present: normal inspection, full ROM, normal capillary refill. Absent: tenderness, pedal edema, joint swelling, calf tenderness Back exam: Present: normal inspection Neurological exam: Present: alert, oriented X3, CN II-XII intact Psychiatric exam: Present: normal affect, normal mood Skin exam: Present: warm, dry, intact, normal color. Absent: rash Course Vital Signs 04/23/24 19:09 Temperature 97.7 F Pulse Rate 82 Respiratory 18 Rate Blood Pressure 145/103 O2 Sat by Pulse 100 Oximetry - Reevaluation(s) Reevaluation #1: 04/23/24 19:44 Records reviewed Reevaluation #2: 04/23/24 19:44 Patient's headache is improved Reevaluation #3: 04/23/24 19:44 Patient informed of results and questions answered Reevaluation #4: Was pt. sent in by a medical professional or institution (, PA, VETERINARY ATTENDANT, urgent care, hospital, or retirement...) When possible be specific @ -no Did you speak to anyone other than the patient for history (EMS, parent, family, police, friend...)? What history was obtained from this source @ -no Did you review nursing and triage notes (agree or disagree)? Why? @ -agree Are old charts reviewed (outside hosp., previous admission, EMS record, old EKG, old radiological studies, urgent care reports/EKG's, retirement records)? Report findings @ -yes Differential Diagnosis (chest pain, altered mental status, abdominal pain women, abdominal pain men, vaginal bleeding, weakness, fever, dyspnea, syncope, headache, dizziness, GI bleed, back pain, seizure, CVA, palpatations, mental health, musculoskeletal)? @ -prior EKG interpreted by me (3pts min.). @ -yes X-rays interpreted by me (1pt min.). @ -yes negative for acute disease CT interpreted by me (1pt min.). @ -no U/S interpreted by me (1pt. min.). @ -no What testing was considered but not performed or refused? (CT, X-rays, U/S, labs)? Why? @ -none What meds were considered but not given or refused? Why? @ -none Did you discuss the management of the patient with other professionals (professionals i.e. Dr., PA, VETERINARY ATTENDANT, lab, RT, psych nurse, social work administrator, glove pairer, teacher, gunnery/ordnance officer, senior case manager)? Give summary @ -no Was smoking cessation discussed for >3mins.? @ -no Was critical care preformed (if so, how long)? @ -no Were there social determinants of health that impacted care today? How? ( Homelessness, low income, unemployed, alcoholism, drug addiction, transportation, low edu. Level, literacy, decrease access to med. care, nursing home, rehab)? @ -none Was there de-escalation of care discussed even if they declined (Discuss DNR or withdrawal of care, Hospice)? DNR status @ -no What co-morbidities impacted this encounter? (DM, HTN, Smoking, COPD, CAD, Cancer, CVA, ARF, Chemo, Hep., AIDS, mental health diagnosis, sleep apnea, morbid obesity)? @ -none Was patient admitted / discharged? Hospital course, mention meds given and route, prescriptions, significant lab abnormalities, going to OR and other pertinent info. @ - Undiagnosed new problem with uncertain prognosis? @ -no Drug Therapy requiring intensive monitoring for toxicity (Heparin, Nitro, Insulin, Cardizem)? @ -no Were any procedures done? @ -no Diagnosis/symptom? @ - Acute, or Chronic, or Acute on Chronic? @ -Acute Uncomplicated (without systemic symptoms) or Complicated (systemic symptoms)? @ -Complicated Side effects of treatment? @ -no Exacerbation, Progression, or Severe Exacerbation? @ -exacerbation Poses a threat to life or bodily function? How? (Chest pain, [place], [place], pneumonia, PE, COPD, DKA, ARF, appy, cholecystitis, CVA, Diverticulitis, Homicidal, Suicidal, threat to staff... and all critical care pts) @ -yes Reevaluation #5: Differential Headache: Migraine, tension, cluster, carbon monoxide, central venous thrombosis, pension karma temporal arteritis, acute closure glaucoma, intercranial hemorrhage, mastoiditis, sinusitis, head injury, this is not meant to be an all-inclusive list. Medical Decision Making - Medical Decision Making 39 female to ER for evaluation of headache headache is improved here in the ER patient can be discharged home Disposition Clinical Impression: Headache, Migraine headache Disposition: HOME SELF-CARE Condition: Good Instructions (If sedation given, give patient instructions): Acute Headache (ED) Is patient prescribed a controlled substance at d/c from ED?: No Referrals: None,Stated [Primary Care Provider] - 1-2 days Time of Disposition: 19:30
[2024-04-23] MEDS: PROCHLORPERAZINE INJ 10 MG/2 ML VIAL IM STA (19:54)
[2024-04-23] MEDS: diphenhydrAMINE 50 MG CAP PO STA (19:55)
[2024-04-23] MEDS: ONDANSETRON ODT 4 MG TAB PO STA (19:55)
[2024-04-23] MEDS: HYDROmorphone 1 MG/ML 1 ML SYRINGE IM STA (19:58)
[2024-04-23 20:49] VITALS: BP 121/73
[2024-04-23] MEDS: cloNIDine 0.2 MG/24HR PATCH TRANSDERM STA (20:49)
[2024-04-23 20:54] VITALS: TEMP 98.6
== END 2024-04-23 20:54 | disposition home or self-care (01) ==
LOC: EC 18:59
DX: G43.909 Migraine, unspecified, not intractable, without status migrainosus (principal); F17.290 Nicotine dependence, other tobacco product, uncomplicated; Z88.1 Allergy status to other antibiotic agents
CPT/HCPCS: 99283; 96372 ×2; J0780; J1171

== ENCOUNTER 2024-05-26 17:55 | Emergency (ER) | payer OTHER ==
[2024-05-26 18:01] VITALS: BP 135/79; PULSE 78; RESP 18; TEMP 98.2
[2024-05-26] MEDS ORDERED: ACETAMINOPHEN TAB 325 MG TAB PO STA (18:37)
[2024-05-26] MEDS ORDERED: diphenhydrAMINE 50 MG/ML 1 ML VIAL IVP STA (18:37)
[2024-05-26] MEDS ORDERED: DEXAMETHASONE SOD PHOSPHATE 10 MG/ML 1 ML VIAL IVP STA (18:37)
[2024-05-26] MEDS ORDERED: SODIUM CHLORIDE 0.9% 1,000 ML IV STA (18:37)
[2024-05-26] MEDS ORDERED: METOCLOPRAMIDE 5 MG/ML 2 ML VIAL IVP STA (18:37)
--- NOTE | 2024-05-26 18:38 | ED ---
Headache HPI - General Chief Complaint: Headache Stated Complaint: Migraine Time Seen by Provider: 05/26/24 18:38 Source: patient, RN notes reviewed, old records reviewed Mode of arrival: ambulatory Limitations: no limitations - History of Present Illness Initial Comments: 39-year-old female with a past medical history significant of IV drug use and migraines presenting to the ER for evaluation of a headache. Patient states this morning she woke up with a migraine headache over her right eye. She states pain feels similar to past migraines. She does report seeing Silver dots with lights and extended periods of watching TV. She also reports 1 episode of nausea and vomiting. She states all the symptoms are similar to previous migraines. She has tried [id number] ibuprofen without relief. Patient denies any head injuries or traumas, neck pain, temporal artery tenderness, chest pain, shortness of breath, fevers, chills, abdominal pain, urinary complaints or peripheral edema. - Related Data Previous Rx's Medication Instructions Recorded Sulfamethox-Tmp 800-160Mg [Bactrim 1 each PO Q12HR 10 Days #20 tab 07/28/21 Ds] Sulfamethox-Tmp 800-160Mg [Bactrim 1 each PO Q12HR #20 tab 02/06/23 Ds] Allergies Allergy/AdvReac Type Severity Reaction Status Date / Time vancomycin Allergy Rash/Hives/ Verified 04/23/24 19:09 Dyspnea Review of Systems ROS Statement: Those systems with pertinent positive or pertinent negative responses have been documented in the HPI. ROS Other: All systems not noted in ROS Statement are negative. Past Medical History Past Medical History: No Reported History Additional Past Medical History / Comment(s): adjustment disorder. Major Depression. Polysubstance abuse. migraine History of Any Multi-Drug Resistant Organisms: MRSA Date of last positivie culture/infection: 02/06/23 MDRO Source:: Left Axilla Past Surgical History: Section Past Anesthesia/Blood Transfusion Reactions: No Reported Reaction Past Psychological History: Anxiety, Bipolar, Depression Smoking Status: Vaper Past Alcohol Use History: None Reported Past Drug Use History: Cocaine, Heroin, IV Drug Use, Marijuana, Methamphetamine General Exam Limitations: no limitations General appearance: alert, in no apparent distress Head exam: Present: atraumatic, normocephalic, normal inspection, other (No temporal artery tenderness) Eye exam: Present: normal appearance, PERRL, EOMI. Absent: scleral icterus, conjunctival injection, periorbital swelling Pupils: Present: normal accommodation ENT exam: Present: normal exam, normal oropharynx, mucous membranes moist, TM's normal bilaterally Neck exam: Present: normal inspection. Absent: tenderness, meningismus, lymphadenopathy Respiratory exam: Present: normal lung sounds bilaterally. Absent: respiratory distress, wheezes, rales, rhonchi, stridor Cardiovascular Exam: Present: regular rate, normal rhythm, normal heart sounds. Absent: systolic murmur, diastolic murmur, rubs, gallop, clicks Neurological exam: Present: alert, oriented X3, CN II-XII intact Skin exam: Present: warm, dry, intact, normal color. Absent: rash Course Vital Signs 05/26/24 17:59 Temperature 98.2 F Pulse Rate 78 Respiratory 18 Rate Blood Pressure 135/79 O2 Sat by Pulse 100 Oximetry Medical Decision Making - Medical Decision Making Was pt. sent in by a medical professional or institution (, PA, CHIPPER MACHINE OPERATOR, urgent care, hospital, or [facility]...) When possible be specific @ -No Did you speak to anyone other than the patient for history (EMS, parent, family, police, friend...)? What history was obtained from this source @ -No Did you review nursing and triage notes (agree or disagree)? Why? @ -I reviewed and agree with nursing and triage notes Were old charts reviewed (outside hosp., previous admission, EMS record, old EKG, old radiological studies, urgent care reports/EKG's, [facility] records)? Report findings @ -No old charts were reviewed Differential Diagnosis (chest pain, altered mental status, abdominal pain women, abdominal pain men, vaginal bleeding, weakness, fever, dyspnea, syncope, headache, dizziness, GI bleed, back pain, seizure, CVA, palpatations, mental health, musculoskeletal)? @Differential Headache: Migraine, tension, cluster, carbon monoxide, central venous thrombosis, pension karma temporal arteritis, acute closure glaucoma, intercranial hemorrhage, mastoiditis, sinusitis, head injury, this is not meant to be an all-inclusive list. EKG interpreted by me (3pts min.). @ -None done X-rays interpreted by me (1pt min.). @ -None done CT interpreted by me (1pt min.). @ -None done U/S interpreted by me (1pt. min.). @ -None done What testing was considered but not performed or refused? (CT, X-rays, U/S, labs)? Why? @ -Laboratory studies ordered. Patient eloped prior to IV administration and medications. What meds were considered but not given or refused? Why? @ -Benadryl, Decadron, Reglan, Tylenol and IV fluids ordered. Patient eloped prior to administration. Did you discuss the management of the patient with other professionals (professionals i.e. , PA, CHIPPER MACHINE OPERATOR, lab, RT, psych nurse, web content & social media manager, dispatch coordinator, teacher, facility security officer, case management coordinator)? Give summary @ -No Was smoking cessation discussed for >3mins.? @ -No Was critical care preformed (if so, how long)? @ -No Were there social determinants of health that impacted care today? How? (Homelessness, low income, unemployed, alcoholism, drug addiction, transportation, low edu. Level, literacy, decrease access to med. care, assisted, rehab)? @ -No Was there de-escalation of care discussed even if they declined (Discuss DNR or withdrawal of care, Hospice)? DNR status @ -No What co-morbidities impacted this encounter? (DM, HTN, Smoking, COPD, CAD, Cancer, CVA, ARF, Chemo, Hep., AIDS, mental health diagnosis, sleep apnea, morbid obesity)? @ -None Was patient admitted / discharged? Hospital course, mention meds given and route, prescriptions, significant lab abnormalities, going to OR and other pertinent info. @ -Patient left AGAINST MEDICAL ADVICE. History and physical exam completed. Vitals within normal limits. No acute neurological findings on exam. Patient ANO x 3. Patient neurovascularly intact. Laboratory studies and symptomatic control ordered. Patient refusing IV upon nursings attempt to administer. Patient states she is going to leave. Patient left AGAINST MEDICAL ADVICE. Patient displayed medical decision-making capabilities. Risks discussed with patient who verbally expresses understanding. Undiagnosed new problem with uncertain prognosis? @ -No Drug Therapy requiring intensive monitoring for toxicity (Heparin, Nitro, Insulin, Cardizem)? @ -No Were any procedures done? @ -No Diagnosis/symptom? @ -AMA/headache Acute, or Chronic, or Acute on Chronic? @ -N/A Uncomplicated (without systemic symptoms) or Complicated (systemic symptoms)? @ -N/A Side effects of treatment? @ -No Exacerbation, Progression, or Severe Exacerbation? @ -No Poses a threat to life or bodily function? How? (Chest pain, [place], [place], pneumonia, PE, COPD, DKA, ARF, appy, cholecystitis, CVA, Diverticulitis, Homicidal, Suicidal, threat to staff... and all critical care pts) @ -No Disposition Clinical Impression: Left against medical advice Disposition: LEFT AGAINST MEDICAL ADVICE Condition: Undetermined Referrals: Francisco Javier Schroeder MD [Primary Care Provider] - 1-2 days Time of Disposition: 20:03
== END 2024-05-26 20:07 | disposition left against medical advice (07) ==
LOC: EC 17:55
DX: R51.9 Headache, unspecified (principal); F17.290 Nicotine dependence, other tobacco product, uncomplicated; Z53.29 Procedure and treatment not carried out because of patient's decision for other reasons; Z88.1 Allergy status to other antibiotic agents
CPT/HCPCS: 99283